=== PATIENT | male | born 1950 | race Caucasian/White ===

== ENCOUNTER → 2017-04-23 | Outpatient (CLI) | payer MEDICAID ==
--- NOTE | 2017-04-23 13:00 | CT ---
EXAMINATION TYPE: CT soft tissue neck w con DATE OF EXAM: 04/23/2017 12:48 PM COMPARISON: Previous study dated 06/09/2011. HISTORY: Bilateral neck swelling marked by BB's CT DLP: 798 mGycm Automated exposure control for dose reduction was used. CONTRAST: CT scan of the neck is performed following with IV Contrast, patient injected with 100 mL of Omnipaqu e 300. Axial images are obtained, coronal and sagittal reformatted images are reviewed. FINDINGS: Visualized portions of the lungs are clear. Visualized intracranial structures are unremarkable. Visualized portions of the paranasal sinuses and mastoids are clear. Vertebral body height and alignment are maintained. Atlantoaxial relationships are normal. There is marked hypertrophic spondylosis at C2-3 and C3-4. There is near complete loss of disc space at C5-6 and C6-7. There is mild hypertrophic spondylosis anteriorly at C5-6 and C6-7. There is uncove rtebral joint disease at the C5-6 and C6-7 level. The major salivary glands are unremarkable. There is developed a large, 2.5 cm subglottic mass on the left. This is indenting the airway and appe ars to be invading the aryepiglottic fold on the left. There is significant, bilateral adenopathy. Th e largest in the superficial triangle on the right measures 2 x 2.76 cm. Conglomerate lymph node mass on the left measures 2.9 x 4.1 cm and encases the external carotid artery on the left. An additional lymph node at the level of the angle of the mandible previously measured 11 mm and today measures 15 mm. The thyroid gland enhances homogeneously. No definite supraclavicular adenopathy is seen. IMPRESSION: 1. Large subglottic mass on the left. 2. Significant, bilateral adenopathy. Several of the lymph nodes we did not present previously or hav e enlarged from previous. 3. Degenerative change within the spine.
== END | disposition home or self-care (01) ==
LOC: RADCTMAIN 12:07
PROVIDERS: ATTEND Family Medicine
DX: R22.1 Localized swelling, mass and lump, neck (principal)
CPT/HCPCS: 70491; Q9967

== ENCOUNTER 2017-05-21 10:28 | Day surgery (SDC) | payer MEDICAID ==
[2017-05-19 11:40] VITALS: BMI 26.3
[~2017-05-21 10:28] MED LIST: ACETAMINOPHEN TAB 500 MG TAB PO ONE; DEXAMETHASONE SOD PHOSPHATE 10 MG/ML 1 ML VIAL IV ONE; DEXAMETHASONE SOD PHOSPHATE 4 MG/ML 1 ML VIAL IV ONE; FAMOTIDINE 20 MG/2 ML VIAL IV ONE; HYDROmorphone 1 MG/ML 1 ML SYRINGE IVP PRN; LACTATED RINGERS 1,000 ML IV SCH; ONDANSETRON 4 MG/2 ML VIAL IVP ONE; ceFAZolin 2 GM in SODIUM CHLORIDE 0.9% 100 ML IVPB ONE
[2017-05-21 11:49] VITALS: RESP 16; TEMP 97.4
[2017-05-21] MEDS ORDERED: LIDOCAINE 1% 20 ML VIAL (10MG/ML) FOR IV START INTRADERMA ONE (11:54)
[2017-05-21 12:16] LABS: INR 1.8 (<1.1); Prothrombin Time 17.4 sec (9.0-12.0)
[2017-05-21 12:18] LABS: Anion Gap 10 mmol/L; Blood Urea Nitrogen 20 mg/dL (9-20); Calcium 9.3 mg/dL (8.4-10.2); Carbon Dioxide 25 mmol/L (22-30); Chloride 107 mmol/L (98-107); Glucose 102 mg/dL (74-99); Non-African American GFR(MDRD) >60 (>60 ml/min/1.73 sqM); Potassium 4.2 mmol/L (3.5-5.1); Sodium 142 mmol/L (137-145)
[2017-05-21] MEDS ORDERED: fentaNYL (PF) 50 MCG/ML 2 ML AMP ONE (12:41)
[2017-05-21] MEDS ORDERED: PROPOFOL 10 MG/ML 20 ML VIAL IV ONE (12:41)
[2017-05-21] MEDS ORDERED: LIDOCAINE 1% INJ 10MG/ML (20 ML MDV) ONE (12:41)
[2017-05-21] MEDS ORDERED: SUCCINYLCHOLINE CHLORIDE 100 MG/5 ML SYR IV ONE (12:41)
[2017-05-21] MEDS ORDERED: DEXAMETHASONE SOD PHOS (MDV) 100 MG/10 ML VIAL ONE (12:41)
[2017-05-21] MEDS ORDERED: MIDAZOLAM 2 MG/2 ML VIAL ONE (12:41)
--- NOTE | 2017-05-21 14:06 | P.OP ---
Date of Procedure: 05/21/17 Preoperative Diagnosis: Left base of tongue mass Cervical lymphadenopathy, malignant Cough Dysphasia Postoperative Diagnosis: Same T2, N2c, M? Stage 4? Procedure(s) Performed: Triple endoscopy and biopsy Implants: Anesthesia: WHITLEYA Surgeon: Alex Vazquez Estimated Blood Loss (ml): 5 Pathology: other (Left base of tongue) Condition: stable Disposition: PACU Indications for Procedure: This patient has a greater than 2 cm mass of the left base of tongue with some cervical lymphadenopathy. Previous fine-needle aspiration demonstrates malignancy. Staging is recommended. Operative Findings: Patient has a over 2 cm mass left base of tongue laterally abutting the lateral pharynx., No esophageal or pulmonary pathology was noted. Description of Procedure: This patient was taken to the operative room and placed in the supine position. A general inhalation anesthetic was administered to the patient by mask and subsequently intubated with a cuffed endotracheal tube by the department of anesthesia with a functioning IV line in place. The patient was monitored throughout the entire case by the department of anesthesia. A Jako laryngoscope was placed into the patient's mouth with care to avoid any trauma to the lips teeth gums and tongue. A tooth guard was placed and the entire oropharynx hypopharynx was evaluated including the base of tongue epiglottis vallecula true and false cords, lateral pharynx, piriform sinus etc. etc. This was examined under microscopic visualization utilizing a Zeiss microscope. There was a large mass measuring between 2-3 cm of the left lateral tongue at the base of the tongue. This was biopsied. Instrumentation was removed and esophagoscope was inserted and we examine the esophagus from the upper esophageal sphincter to the lower esophageal sphincter. There is no signs of any esophageal abnormalities. The esophagoscope was removed and a bronchoscope was inserted and the patient's trachea and then into the right and left mainstem bronchi. All 12 segments of the lungs were evaluated and no endobronchial lesions were noted. All instrumentation was removed and the patient was taken to postanesthesia recovery in excellent condition.
[2017-05-21 14:52] VITALS: BP 155/82; PULSE 63
== END 2017-05-21 15:17 | disposition home or self-care (01) ==
LOC: OR 10:28
PROVIDERS: ATTEND Otolaryngology
DX: D00.07 Carcinoma in situ of tongue (principal); R59.0 Localized enlarged lymph nodes; R05 Cough; R47.02 Dysphasia; R13.14 Dysphagia, pharyngoesophageal phase; I11.0 Hypertensive heart disease with heart failure; I50.9 Heart failure, unspecified; E78.5 Hyperlipidemia, unspecified; I48.91 Unspecified atrial fibrillation; M10.9 Gout, unspecified; E78.00 Pure hypercholesterolemia, unspecified; Z79.01 Long term (current) use of anticoagulants; Z79.891 Long term (current) use of opiate analgesic; Z79.899 Other long term (current) drug therapy; Z87.891 Personal history of nicotine dependence
CPT/HCPCS: 93005; 88305; 80048; 85610; 31536; 43200; 31622; J2250; J1100 ×2; J0690; J2405; J2001; J3010; J0330; J2704

== ENCOUNTER → 2017-06-06 | Outpatient (CLI) | payer MEDICAID ==
--- NOTE | 2017-06-06 16:50 | PE ---
EXAMINATION TYPE: PET CT fusion skull to thigh DATE OF EXAM: 06/06/2017 CLINICAL HISTORY: Malignant neoplasm of base of tongue, initial staging study. TECHNIQUE: Following the intravenous administration of 14.67 mCi of F-18 FDG, whole body images are performed from the skull base to the midthigh. Images are reviewed on the computer in the coronal, axial, and sagittal planes. Reconstructed rotating images are created on independent workstation and reviewed on the computer. A non-contrast CT is performed in conjunction with the PET scan. [facility] neck PET/CT evaluation is performed. COMPARISON: CT neck April 23, 2017. FINDINGS: SKULL BASE AND NECK: There is abnormal lobulated hypermetabolic soft tissue in the bilateral tongue base, left greater than right, which has inferior extension up to level of the epiglottis and pirifor m sinus up to level of hyoid bone on axial image 56 filling the left piriform sinus, max SUV is 15.57 . There are several abnormal confluent right sided neck lymph nodes, largest measured lymph node possib le conglomerate of lymph node measures 2.6 x 2.0 cm on axial image 57 with max SUV of 7.61. There are additional abnormal left sided neck lymph nodes with a larger area measuring lobulated sing le node or 2 adjacent nodes with indistinct fat plane measures 2.3 x 1.7 cm on axial image 70 at leve l of the true vocal cords, max SUV is 9.88s. There is more prominent left-sided lymph node involvemen t from submandibular level 1B up to level of vocal cords. Prominent irregular confluent adenopathy le ft submandibular level is seen near axial image 49 difficult to accurately measure. There is abnormal 1.0 cm lymph node left parapharyngeal space on axial image 41 with max SUV of 5.71 CHEST, MEDIASTINUM, AND HILAR REGION: There is 8 x 8 mm nodule in the superior aspect of left lower l obe on axial image 105 without abnormal hypermetabolic uptake currently. There is diffuse increase uptake in the right-sided anterior upper chest or pectoralis muscle, correl ate for inflammatory process or myositis at this level. ABDOMEN AND PELVIS: No suspicious hypermetabolic uptake in the abdomen or pelvis is seen. OSSEOUS STRUCTURES: No suspicious hypermetabolic uptake in osseous structures is noted. OTHER CT: Cardiomegaly is present. Coronary artery calcification is seen. Main pulmonary artery measures 3.2 cm diameter on axial image 97, CT findings suggesting underlying p ulmonary artery hypertension. Adjacent ascending aorta measures 3.5 cm diameter. 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 No iliac artery extension is seen. Central zone calcifications are seen in prostate gland which is upper limits of normal in size. Incidental normal-appearing appendix is seen. There is multilevel facet arthropathy in the lower lumbar spine. Multilevel spurring in the spine is noted. IMPRESSION: Large lobulated tongue base mass or neoplasm is confirmed with slightly more prominent la rger left-sided component extending through the left piriform sinus. Bilateral adenopathy involves zo alonso 1b,2, and 3 worse on the left side. Suspicious 8 mm left mid lung or superior lower lobe nodule i s noted and warrants short-term CT follow-up in 3 months time to assess for interval growth or change despite nonhypermetabolic uptake malignant involvement cannot be excluded. Otherwise no evidence of metastatic disease in the thorax abdomen or pelvis.
== END | disposition home or self-care (01) ==
LOC: RADPETMAIN 09:58
PROVIDERS: ATTEND Radiology Radiation Oncology
DX: C01 Malignant neoplasm of base of tongue (principal)
CPT/HCPCS: 78815; A9552

== ENCOUNTER 2017-08-24 11:37 | Inpatient (IN) | payer MEDICAID ==
[2017-08-24] MEDS ORDERED: SODIUM CHLORIDE 0.9% 500 ML IV STA (11:41)
--- NOTE | 2017-08-24 11:47 | ED ---
General Adult HPI - General Stated complaint: Fall Time Seen by Provider: 08/24/17 11:37 Source: RN notes reviewed - History of Present Illness Initial comments: This is a 66-year-old male whose has a past medical history significant for recurrent throat cancer. Patient states he has been feeling weaker and weaker lately patient states he 30 yesterday morning he was going to the bathroom when he went to get up he states he felt lightheaded and passed out and hit the back of his head. Patient currently complains of posterior head pain. Patient denies any new neck pain. Patient denies numbness weakness. Patient denies any visual disturbance per patient denies any chest pain palpitations difficulty breathing or shortness of breath. Patient denies any back pain. Patient denies any extremity pain. Patient states she only reason he came in today is because he appears to be getting weaker currently. Patient states his last chemotherapy was week and half ago and his last radiation was a few days ago. Patient denies any recent fever chills or cough. - Related Data Home Medications Medication Instructions Recorded Confirmed Atorvastatin [Lipitor] 40 mg PO HS 05/19/17 08/24/17 Furosemide [Lasix] 20 mg PO QAM 05/19/17 08/24/17 Lisinopril [Prinivil] 20 mg PO BID 05/19/17 08/24/17 Metoprolol Tartrate [Lopressor] 25 mg PO BID 05/19/17 08/24/17 Warfarin [Coumadin] 5 mg PO MOWEFRSA 05/19/17 08/24/17 amLODIPine BESYLATE [Norvasc] 5 mg PO QAM 05/19/17 08/24/17 hydrALAZINE HCL 50 mg PO TID 05/19/17 08/24/17 Warfarin [Coumadin] 2.5 mg PO SUTUTH 08/24/17 08/24/17 Allergies Allergy/AdvReac Type Severity Reaction Status Date / Time No Known Allergies Allergy Verified 08/24/17 11:53 Review of Systems ROS Statement: Those systems with pertinent positive or pertinent negative responses have been documented in the HPI. ROS Other: All systems not noted in ROS Statement are negative. Past Medical History Past Medical History: Atrial Fibrillation, Heart Failure, Hyperlipidemia, Hypertension Additional Past Medical History / Comment(s): states enlarged lymph nodes History of Any Multi-Drug Resistant Organisms: None Reported Past Surgical History: Appendectomy Past Anesthesia/Blood Transfusion Reactions: No Reported Reaction Smoking Status: Former smoker - Past Family History Mother Family Medical History: No Reported History General Exam - General Exam Comments Initial Comments: GENERAL: Patient is well-developed and well-nourished. Patient is nontoxic and well- hydrated and is in mild distress. Patient has a small hematoma to the posterior aspect of the scalp ENT: Neck is soft and supple. No significant lymphadenopathy is noted. Oropharynx is clear. Moist mucous membranes. Neck has full range of motion without eliciting any pain. EYES: The sclera were anicteric and conjunctiva were pink and moist. Extraocular movements were intact and pupils were equal round and reactive to light. Eyelids were unremarkable. PULMONARY: Unlabored respirations. Good breath sounds bilaterally. No audible rales rhonchi or wheezing was noted. CARDIOVASCULAR: There is a regular rate and rhythm without any murmurs gallops or rubs. ABDOMEN: Soft and nontender with normal bowel sounds. No palpable organomegaly was noted. There is no palpable pulsatile mass. SKIN: Skin is clear with no lesions or rashes and otherwise unremarkable. NEUROLOGIC: Patient is alert and oriented x3. Cranial nerves II through XII are grossly intact. Motor and sensory are also intact. Normal speech, volume and content. Symmetrical smile. MUSCULOSKELETAL: Normal extremities with adequate strength and full range of motion. No lower extremity swelling or edema. No calf tenderness. LYMPHATICS: No significant lymphadenopathy is noted PSYCHIATRIC: Normal psychiatric evaluation. Course Vital Signs 08/24/17 11:41 Temperature 97.0 F L Pulse Rate 74 Respiratory 18 Rate Blood Pressure 87/48 O2 Sat by Pulse 95 Oximetry Medical Decision Making - Medical Decision Making EKG shows sinus rhythm at 63 bpm MT interval is 124 QRS is 102 QT interval is 426 QTC is 435. EKG shows no ST segment elevation or depression. CT of the brain and C-spine showed no acute abnormality. Patient's c-collar was removed and he was referred for further x-rays. X-ray showed no acute abnormality Patient's INR was greater than 10/started the patient on some vitamin K. I spoke with because she agreed to admit the patient admitted the patient and wrote admitting orders. - Lab Data Result diagrams: 08/24/17 11:56 08/24/17 11:56 Lab Results 08/24/17 08/24/1717 Range/Units 11:56 11:56 11:56 WBC 1.3 L* (3.8-10.6) k/uL RBC 2.88 L (4.30-5.90) m/uL Hgb 8.6 L (13.0-17.5) gm/dL Hct 25.8 L (39.0-53.0) % MCV 89.6 (80.0-100.0) fL MCH 29.8 (25.0-35.0) pg MCHC 33.3 (31.0-37.0) g/dL RDW 20.2 H (11.5-15.5) % Plt Count 141 L (150-450) k/uL Neutrophils % (Manual) 75 % Band Neutrophils % 3 % Lymphocytes % (Manual) 10 % Monocytes % (Manual) 12 % Neutrophils # (Manual) 1.00 L (1.3-7.7) k/uL Lymphocytes # (Manual) 0.13 L (1.0-4.8) k/uL Monocytes # (Manual) 0.16 (0-1.0) k/uL Nucleated RBCs 0 (0-0) /100 WBC Manual Slide Review Performed Poikilocytosis Slight Anisocytosis Moderate PT (9.0-12.0) sec INR (<1.2) APTT (22.0-30.0) sec Chloride 99 (98-107) mmol/L Carbon Dioxide 22 (22-30) mmol/L BUN 35 H (9-20) mg/dL Creatinine 2.10 H (0.66-1.25) mg/dL Est GFR (MDRD) Af Amer 38 (>60 ml/min/1.73 sqM) Est GFR (MDRD) Non-Af 32 (>60 ml/min/1.73 sqM) Total Creatine Kinase 120 (55-170) U/L CK-MB (CK-2) 0.5 (0.0-2.4) ng/mL CK-MB (CK-2) Rel Index 0.4 Troponin I 0.062 H* (0.000-0.034) ng/mL Total Protein 5.9 L (6.3-8.2) g/dL Albumin 3.3 L (3.5-5.0) g/dL Urine Color Urine Appearance (Clear) Urine pH (5.0-8.0) Ur Specific [place] (1.001-1.035) Urine Protein (Negative) Urine Glucose (UA) (Negative) Urine Ketones (Negative) Urine Blood (Negative) Urine Nitrite (Negative) Urine Bilirubin (Negative) Urine Urobilinogen (<2.0) mg/dL Ur Leukocyte Esterase (Negative) Urine WBC (0-5) /hpf Ur Squamous Epith Cells (0-4) /hpf Urine Bacteria (None) /hpf Hyaline Casts (0-2) /lpf Urine Mucus (None) /hpf 08/24/17 08/24/17 Range/Units 11:56 13:00 WBC (3.8-10.6) k/uL RBC (4.30-5.90) m/uL Hgb (13.0-17.5) gm/dL Hct (39.0-53.0) % MCV (80.0-100.0) fL MCH (25.0-35.0) pg MCHC (31.0-37.0) g/dL RDW (11.5-15.5) % Plt Count (150-450) k/uL Neutrophils % (Manual) % Band Neutrophils % % Lymphocytes % (Manual) % Monocytes % (Manual) % Neutrophils # (Manual) (1.3-7.7) k/uL Lymphocytes # (Manual) (1.0-4.8) k/uL Monocytes # (Manual) (0-1.0) k/uL Nucleated RBCs (0-0) /100 WBC Manual Slide Review Poikilocytosis Anisocytosis PT >130.0 H (9.0-12.0) sec INR >10.0 H* (<1.2) APTT 60.7 H (22.0-30.0) sec Chloride (98-107) mmol/L Carbon Dioxide (22-30) mmol/L BUN (9-20) mg/dL Creatinine (0.66-1.25) mg/dL Est GFR (MDRD) Af Amer (>60 ml/min/1.73 sqM) Est GFR (MDRD) Non-Af (>60 ml/min/1.73 sqM) Total Creatine Kinase (55-170) U/L CK-MB (CK-2) (0.0-2.4) ng/mL CK-MB (CK-2) Rel Index Troponin I (0.000-0.034) ng/mL Total Protein (6.3-8.2) g/dL Albumin (3.5-5.0) g/dL Urine Color Yellow Urine Appearance Cloudy (Clear) Urine pH 5.5 (5.0-8.0) Ur Specific [place] 1.013 (1.001-1.035) Urine Protein 1+ H (Negative) Urine Glucose (UA) Negative (Negative) Urine Ketones 1+ H (Negative) Urine Blood Negative (Negative) Urine Nitrite Negative (Negative) Urine Bilirubin 1+ H (Negative) Urine Urobilinogen 2.0 (<2.0) mg/dL Ur Leukocyte Esterase Trace H (Negative) Urine WBC 9 H (0-5) /hpf Ur Squamous Epith Cells 1 (0-4) /hpf Urine Bacteria Rare H (None) /hpf Hyaline Casts 4 H (0-2) /lpf Urine Mucus Rare H (None) /hpf Disposition Clinical Impression: Anemia, Warfarin-induced coagulopathy, Head injury, Elevated troponin Disposition: ADMITTED IP TO THIS HOSP Referrals: Eugene Willard DO [Primary Care Provider] - 1-2 days Time of Disposition: 13:43
[2017-08-24 12:19] LABS: Anisocytosis Moderate; CH 29.8; CHCM 33.3; HCT 25.8 % (39.0-53.0); HDW 3.75; HGB 8.6 gm/dL (13.0-17.5); MCH 29.8 pg (25.0-35.0); MCHC 33.3 g/dL (31.0-37.0); MCV 89.6 fL (80.0-100.0); Poikilocytosis Slight; RBC 2.88 m/uL (4.30-5.90); RDW 20.2 % (11.5-15.5); WBC (Perox) 1.29
[2017-08-24 12:33] LABS: WBC 1.3 k/uL (3.8-10.6)
--- NOTE | 2017-08-24 12:45 | CT ---
EXAMINATION TYPE: CT brain sunil knutson DATE OF EXAM: 08/24/2017 COMPARISON: NONE HISTORY: Fall CT DLP: 1336.[address] of the brain was performed. The ventricles, basal cisterns and sulci overlying the cerebral convexities demonstrate mild enlargem ent. There is no evidence for intracranial hemorrhage or sulcal effacement. There is decreased attenuatio n about the periventricular white matter and deep white matter of both cerebral hemispheres, compatib le with chronic small vessel ischemia. No mass effects are seen. If symptoms persist consider MRI. Osseous calvarium is intact. Left posterior parietal occipital scalp hematoma. IMPRESSION: 1. Age related atrophic and chronic small vessel ischemic change without acute intracranial process seen at this time. CT Cervical Spine: Unenhanced CT of the cervical spine was performed with bone and soft tissue window settings submitted . Coronal and sagittal reconstruction is obtained. There is normal alignment and prevertebral soft tissues. No evidence for acute cervical fracture . Mo derate degenerative disc disease and spondylosis. Biapical scarring. IMPRESSION: 1. No evidence for acute fracture or subluxation of the cervical spine.
[2017-08-24 12:52] LABS: INR >10.0 (<1.2); Partial Thromboplastin Time 60.7 sec (22.0-30.0); Prothrombin Time >130.0 sec (9.0-12.0)
[2017-08-24 12:56] LABS: Add Differential Manual Differential
[2017-08-24 12:59] LABS: Creatine Kinase MB 0.5 ng/mL (0.0-2.4)
[2017-08-24 13:01] LABS: Band Neutrophils % 3 %; Manual Review Performed; Nucleated Red Blood Cells 0 /100 WBC (0-0); Total Cells Counted 100
[2017-08-24 13:19] LABS: Troponin I 0.062 ng/mL (0.000-0.034)
[2017-08-24 13:22] LABS: Appearance,Urine Cloudy (Clear); Bacteria,Urine Rare /hpf; Bilirubin,Urine 1+ (Negative); Glucose,Urine (UA) Negative (Negative); Ketones,Urine 1+ (Negative); Leukocyte Esterase,Urine Trace (Negative); Mucus,Urine Rare /hpf; Nitrite,Urine Negative (Negative); PH, Urine 5.5 (5.0-8.0); Particle Count 5750; Protein,Urine 1+ (Negative); Specific Gravity,Urine 1.013 (1.001-1.035); Squamous Epithelial Cell,Urine 1 /hpf (0-4); UA Billing (MACRO vs. MICRO) MICRO; WBC,Urine 9 /hpf (0-5)
--- NOTE | 2017-08-24 13:29 | XR ---
EXAMINATION TYPE: XR chest 2V DATE OF EXAM: 08/24/2017 COMPARISON: NONE HISTORY: Fall injury with increased weakness. TECHNIQUE: Frontal and lateral views of the chest are obtained. FINDINGS: There is no focal air space opacity, pleural effusion, or pneumothorax seen. The cardiac silhouette size is within normal limits. Large bridging osteophytes are seen in the thoracic spine. IMPRESSION: No acute cardiopulmonary process.
[2017-08-24 13:37] LABS: Total Protein 5.9 g/dL (6.3-8.2)
[2017-08-24] MEDS ORDERED: PHYTONADIONE 5 MG in SODIUM CHLORIDE 0.9% 50 ML IVPB STA (13:40)
[2017-08-24] MEDS ORDERED: SODIUM CHLORIDE 0.9% 1,000 ML IV ONE (13:43)
[2017-08-24 13:49] LABS: Potassium 3.2 mmol/L (3.5-5.1); Total Bilirubin 0.7 mg/dL (0.2-1.3)
[2017-08-24 14:01] LABS: Calcium 6.4 mg/dL (8.4-10.2)
[2017-08-24 14:02] LABS: Magnesium 0.6 mg/dL (1.6-2.3)
[2017-08-24 15:33] LABS: Magnesium 0.6 mg/dL (1.6-2.3)
[2017-08-24] MEDS: MAGNESIUM SULFATE-D5W PMX 1 GM in DEXTROSE/WATER 1 100ML.BAG IVPB SCH ×3 (16:09→19:25)
[2017-08-24] MEDS: LACTATED RINGERS 1,000 ML IV SCH (21:01)
[2017-08-25] MEDS: METOPROLOL TARTRATE 12.5 MG TAB PO SCH ×3 (00:30→21:03)
--- NOTE | 2017-08-25 05:23 | HP ---
HISTORY AND PHYSICAL DATE OF ADMISSION: 08/24/17. PRESENTING COMPLAINT: Passed out. HISTORY OF PRESENTING COMPLAINT: This is a 66-year-old patient of Dr. Willard. The patient also has a cancer of the base of the tongue and adjoining lymph nodes treated with chemotherapy and radiation treatment with Dr. Walker and just completed treatment. The patient is due to shortly followup. The patient has not been eating or drinking much, just drinking some liquids here and there and gradually has been losing weight. Patient does get lightheaded easily and the last 3 to 4 days has been falling. Two days ago he fell and hit the back of the head in the tub. He fell yesterday, yet again today and came in with a bruise on the back of the head. CT scan did not reveal any fracture or hematoma but INR did come back to be elevated, greater than 10. Patient was not bleeding externally anywhere. Hence was given 5 mg of vitamin K IV was given. The patient's girlfriend lives with him. Patient's son is also present in the room. The patient takes Coumadin for atrial fibrillation and other chronic stable medical conditions include congestive heart failure, hyperlipidemia, hypertension. Just feels weak, tired and run down. REVIEW OF SYSTEMS: CONSTITUTIONAL: Weak, tired and loss of appetite. HEENT bump at the back of the head. RESPIRATORY: None. CARDIOVASCULAR: None. GI: None. GENITOURINARY: None. MUSCULOSKELETAL: None. DERMATOLOGICAL: Bruising the back of the head and the skin. Hematologic: None. Lymphatics: None. Psychiatry: None. Neurological nonfocal. PAST MEDICAL HISTORY: Atrial fibrillation. Base of tongue cancer with lymph node, congestive heart failure. Hyperlipidemia, hypertension and shingles. PAST SURGICAL HISTORY: Tongue biopsy, appendectomy. SOCIAL HISTORY: The patient smoked for about 40 years, over a pack a day. Stopped in 2006. Alcohol occasionally, lives with his girlfriend. FAMILY HISTORY: Reviewed noncontributory to presentation. HOME MEDICATIONS: 1. Coumadin 2.5 mg on Thursday, Thursday, , and 5 mg on Thursday, Thursday, Thursday, Thursday. 2. Prinivil 200 mg b.i.d. 3. Lipitor 40 mg at bedtime. 4. Lopressor 25 p.o. b.i.d. 5. Hydralazine 50 mg t.i.d. 6. Norvasc 5 mg p.o. daily. 7. Lasix 20 mg p.o. daily. ALLERGIES: None. PHYSICAL EXAMINATION: Vital signs on presentation: Temperature 97, pulse 74, respiration 18, blood pressure 87/48, pulse ox 95% on room air. GENERAL APPEARANCE: Average built, lying in bed, tired appearing. Eyes pupils conjunctivae pale HEENT: Oral cavity normal. Patient has got a bruising of the slight bump at the back of the head. Neck JVD not raised. Mass not palpable. Respiratory effort normal. Lungs slightly decreased breath sounds. Cardiovascular 1st and 2nd sounds normal. No edema. ABDOMEN: Soft, nontender. Liver and spleen not palpable. Lymphatics: No lymph nodes palpable. Psychiatry awake, able to answer simple questions. HEENT patient also got a hoarse voice. INVESTIGATIONS: White count 1.3, hemoglobin 8.6, platelets 141. INR greater than 10. Potassium 3.2, BUN 35, creatinine 2.10, the patient's BUN and creatinine on May 21, 2017 was 20/0.87, magnesium 0.6, calcium 6.4, albumin 3.3. EKG shows sinus rhythm. Sinus arrhythmia. ASSESSMENT: 1. Syncope from significant hypotension in a patient who has been losing weight and his current antihypertensives have become too much for him. 2. Moderate protein calorie malnutrition from decreased oral intake with hypoalbuminemia. 3. Severe hypomagnesemia, decreased oral intake. 4. Acute renal failure likely prerenal. Could be an acute tubular necrosis component. 5. Hypokalemia. 6. Coumadin toxicity with no evidence of bleeding. 7. Pancytopenia from chemotherapy. 8. Cancer of the base of tongue with local lymph nodes involved. 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 PLAN: Patient will be given IV fluids. The patient's antihypertensive will be held back especially the Prinivil and the Norvasc. We will add a small dose of Lopressor 12.5 twice a day for systolic above 100. The patient's Lasix of course will be discontinued. Patient did receive 5 mg of vitamin K, hence there was no further bleeding. We will keep a close eye. Patient's oral intake is rather poor and oral rather poor and will get opinion from Dr. Jones. May have to think of additional source of feeding like a PEG tube if the patient not able to maintain oral intake. We will get dietitian consultation for the same and also add food supplements like Ensure. Care was discussed with the patient and the girlfriend and the family at the bedside. Questions were answered. Repeat INR and labs in the morning. Additionally we will do fall precautions, bedside commode and an ice pack for the bruise at the back of her head. MMODL / IJN: [id number] /
[2017-08-25 06:21] LABS: INR 1.4 (<1.2); Prothrombin Time 13.4 sec (9.0-12.0)
[2017-08-25 06:40] LABS: Glucose,Whole Blood 97 mg/dL (75-99)
[2017-08-25 07:10] LABS: Anisocytosis Moderate; CH 29.8; HCT 20.6 % (39.0-53.0); HDW 3.61; Hypochromasia Slight; MCH 30.2 pg (25.0-35.0); MCHC 33.3 g/dL (31.0-37.0); MCV 90.6 fL (80.0-100.0); Macrocytosis Slight; Mean Platelet Volume 7.4; Poikilocytosis Slight; RBC 2.27 m/uL (4.30-5.90); RDW 20.7 % (11.5-15.5); WBC (Perox) 1.05
[2017-08-25 07:18] LABS: WBC 0.9 k/uL (3.8-10.6)
[2017-08-25 07:20] LABS: HGB 6.8 gm/dL (13.0-17.5)
[2017-08-25 07:29] LABS: Calcium 5.9 mg/dL (8.4-10.2)
[2017-08-25 08:20] LABS: Magnesium 1.2 mg/dL (1.6-2.3)
[2017-08-25 08:23] LABS: Add Differential Manual Differential
[2017-08-25 08:24] LABS: Potassium 2.8 mmol/L (3.5-5.1)
[2017-08-25 08:25] LABS: Calcium 5.4 mg/dL (8.4-10.2)
[2017-08-25 08:26] LABS: Manual Review Performed
[2017-08-25] MEDS ORDERED: Potassium Replacement Protocol 1 EACH MISC MISCELLANE PRN ×2 (09:24→09:59)
[2017-08-25] MEDS ORDERED: Magnesium Replacement Protocol 1 EACH MISC MISCELLANE PRN ×2 (09:24→10:00)
[2017-08-25 09:35] LABS: Anisocytosis Moderate; CH 29.7; CHCM 33.6; MCH 30.3 pg (25.0-35.0); MCHC 34.2 g/dL (31.0-37.0); MCV 88.6 fL (80.0-100.0); Mean Platelet Volume 7.3; Poikilocytosis Slight; RBC 2.26 m/uL (4.30-5.90); RDW 20.5 % (11.5-15.5)
[2017-08-25 09:36] LABS: HGB 6.9 gm/dL (13.0-17.5); WBC 1.1 k/uL (3.8-10.6)
[2017-08-25] MEDS ORDERED: CALCIUM GLUCONATE 2,000 MG in SODIUM CHLORIDE 0.9% 100 ML IVPB ONE (10:00)
--- NOTE | 2017-08-25 10:54 | ECHOF ---
Referral Reason:syncope MEASUREMENTS -------- HEIGHT: 180.3 cm WEIGHT: 75.3 kg BP: 115/55 IVSd: 1.0 cm (0.6 - 1.1) LVIDd: 5.5 cm (3.9 - 5.3) LVPWd: 1.3 cm (0.6 - 1.1) IVSs: 1.7 cm LVIDs: 3.8 cm LVPWs: 1.2 cm LAESV Index (A-L): 24.44 ml/m Ao Diam: 3.2 cm (2.0 - 3.7) AV Cusp: 2.0 cm (1.5 - 2.6) LA Diam: 2.8 cm (2.7 - 3.8) MV EXCURSION: 20.824 mm (> 18.000) MV EF SLOPE: 141 mm/s (70 - 150) EPSS: 0.7 cm MV E Nba: 0.69 m/s MV DecT: 255 ms MV A Nba: 0.65 m/s MV E/A Ratio: 1.08 RAP: 5.00 mmHg RVSP: 20.60 mmHg FINDINGS -------- This was a technically good study. The left ventricular size is normal. There is borderline concentric left ventricular hypertrophy. Overall left ventricular systolic function is normal with, an EF between 55 - 60 %. The right ventricle is normal in size and function. Normal LA size by volume 22+/-6 ml/m2. The right atrium is normal in size. Aortic valve is trileaflet and is mildly thickened. The mitral valve leaflets are mildly thickened. Mild mitral regurgitation is present. Mild tricuspid regurgitation present. The right ventricular systolic pressure, as measured by Doppler, is 20.60mmHg. Pulmonic valve appears structurally normal. The aortic root size is normal. Normal inferior vena cava with normal inspiratory collapse consistent with estimated right atrial pressure of 5 mmHg. The pericardium is normal. CONCLUSIONS -------- 1. This was a technically good study. 2. Mild mitral regurgitation is present. 3. Mild tricuspid regurgitation present. 4. The right ventricular systolic pressure, as measured by Doppler, is 20.60mmHg. 5. Pulmonic valve appears structurally normal. 6. The aortic root size is normal. 7. Normal inferior vena cava with normal inspiratory collapse consistent with estimated right atrial pressure of 5 mmHg. 8. The pericardium is normal. 9. The left ventricular size is normal. 10. There is borderline concentric left ventricular hypertrophy. 11. Overall left ventricular systolic function is normal with, an EF between 55 - 60 %. 12. The right ventricle is normal in size and function. 13. Normal LA size by volume 22+/-6 ml/m2. 14. The right atrium is normal in size. 15. Aortic valve is trileaflet and is mildly thickened. 16. The mitral valve leaflets are mildly thickened. RADIO DESPATCHER: Tatum Tong RDCS
--- NOTE | 2017-08-25 11:15 | CONS ---
CONSULTATION Mr. Moore is a 66-year-old male who presented after a fall and possible syncope. The patient has been followed by Dr. 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 His last course of radiation was this past Thursday. The patient has not been able to eat. His fluid intake has been quite low. He has lost about 30 pounds. Yesterday he got out of the bathroom and fell. He denies any associated chest pain. No change in his breathing. No dizziness or palpitation. No peripheral edema. No PND, orthopnea, or peripheral edema. He is overall weaker with lack off energy. He, according to him, had no prior history of other cardiac issue. He has underwent stress testing and echo in the past and he was not told that he has any evidence of ischemic heart disease. His coronary abdirizak factor is remarkable for history of hypertension. He is nondiabetic. He stopped smoking in 2006. He is hyperlipidemic. MEDICATION: His medications at home include Lasix 20 mg daily, amlodipine 5 mg daily, hydralazine 50 mg 3 times a day, metoprolol 25 mg, Lipitor 40 mg daily, Prinivil 20 mg twice a day, and Coumadin. REVIEW OF SYSTEMS: RESPIRATORY SYSTEM: He has no recent wheezing. No cough. No history of documented obstructive lung disease. GI SYSTEM: No recent GI bleeding. No peptic ulcer disease. SYSTEM: No dysuria or hematuria. NERVOUS SYSTEM: No history of stroke or seizure. PHYSICAL EXAMINATION: He is a 66-year-old male, alert, in no apparent distress. Blood pressure 117/58 with evidence of orthostatic changes. Heart rate in the 70s. HEAD: Normocephalic. EYES: Sclerae nonicteric. NECK: No bruit. LUNGS: Clear to auscultation. HEART: Regular rate and rhythm, S1, S2. No S3. No rub or gallop. ABDOMEN: Soft, nontender. Positive bowel sounds, no organomegaly. EXTREMITIES: No edema. Intact pulses. LAB DATA: Revealed a white blood cell of 0.9, hemoglobin of 6.8, platelet count of 104. His INR on presentation was over 10 down to 1.4 today. His potassium is 2.8, BUN and creatinine 32 and 1.61, improved since yesterday of 35 and 2.1. His albumin is 3.3. Troponin 0.062. His EKG revealed a sinus mechanism with occasional PVCs and PACs. IMPRESSION: 1. Fall and possible syncope, most likely related to orthostatic hypotension related to the history of hypertension and weight loss. 2. Malnutrition. 3. Electrolyte imbalance. 4. Severe anemia. 5. Pancytopenia. 6. Hypercoagulation. 7. History of cancer of the tongue, received chemotherapy and radiation therapy. RECOMMENDATION: From the cardiac standpoint, I agree with the plan with IV fluids. Most likely he will need to be transfused. I spoke to Dr. Jones in that regard and he will be further evaluated. I will try to obtain the workup that was done in the office. Patient has been started on low-dose beta danyelle and depending on his response, further recommendation will be made, anticoagulation will be continued to be held at this point. Thank you for this consult. Will follow with you. COLLINS / PORSHAN: [id number] /
[2017-08-25] MEDS: POTASSIUM CHLORIDE ER 20 MEQ TAB.ER PO SCH ×3 (11:36→14:20)
[2017-08-25] MEDS: MAGNESIUM SULFATE-D5W PMX 1 GM in DEXTROSE/WATER 1 100ML.BAG IVPB SCH ×3 (11:52→14:18)
--- NOTE | 2017-08-25 13:47 | P.PN ---
Progress Note - Text DATE OF SERVICE: 08/25/2017 PRESENTING COMPLAINT: Passing out HISTORY OF PRESENT ILLNESS: 66-year-old patient history of cancer of the base of the tongue and adjoining lymph nodes status post chemoradiation therapy. Has had overall poor appetite and losing weight. Has found he is becoming lightheaded and has been falling. Fell on his back his head and the top came in for evaluation computed tomography scan negative and INR will was greater than 10. Not bleeding anywhere however received vitamin K. INTERVAL HISTORY: Lying in bed appears tired. Magnesium potassium and calcium all low and supplemented appropriately. Discussion had with patient regarding placement of a feeding tube. Questions were answered patient understood reason for placement and is agreeable. IV fluids continue. Dietitian consulted. Ambulatory to and from the bathroom with assistance. Appetite overall poor not eating much. No bleeding, daily monitoring of INR. REVIEW OF SYSTEMS: Done for constitutional ,cardiovascular, GI, pulmonary with relevant findings as above. CURRENT MEDICATIONS Lopressor 12.5 mg by mouth daily, filgrastim 480 g subcu daily PHYSICAL EXAM VITAL SIGNS: Temperature 97.9, pulse 74, respiratory rate 16, blood pressure 117/58, standing blood pressure 88/46, lying blood pressure 115/55. Oxygen saturation 100% on 2 L GENERAL APPEARANCE: Lying in bed, tired appearing. EYES: Pupils equal. Conjunctiva normal. NECK: JVD not raised. Mass not palpable. RESPIRATORY: Respiratory effort normal. Lungs clear to auscultation. CARDIOVASCULAR: First and second sounds normal. No edema. ABDOMEN: Soft. Liver and spleen not palpable. No tenderness. No mass palpable. PSYCHIATRY: Alert and oriented x3. Mood and affect low. INVESTIGATIONS: White blood cell count 1.1 hemoglobin 6.9, potassium 2.8, BUN 32, creatinine 1.61 calcium 5.4, magnesium 1.2, ASSESSMENT: -Syncope from significant hypotension in a patient who is been losing weight and his current antihypertensives have become too much for him. -Acute anemia, no active source of bleeding identified, likely hemodilution or from chemotherapy -Moderate protein calorie malnutrition from decreased oral intake with hypoalbuminemia -Severe hypomagnesemia decreased oral intake. -Acute renal failure likely prerenal, could be acute tubular necrosis component. -Hypokalemia. -Coumadin toxicity was no evidence of bleeding. -Pancytopenia from chemotherapy. -Cancer of the base of the tongue with local lymph node involvement. 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 PLAN: Continue IV fluids, monitor daily labs, electrolyte imbalances supplemented, discussion had regarding PEG tube placement with patient and oncology and for now PEG tube is on hold. Hemoglobin low today will likely receive 1 unit of packed red blood cells, started low-dose beta danyelle, all the cardiac medications held as is his anticoagulation. Plan of care discussed with the patient the bedside we will monitor closely. RESIDENTIAL FEE APPRAISER statement: Patient was seen and examined by nurse practitioner Digna Hwang and all elements of the case discussed with attending Dr. Zee
[2017-08-25] MEDS: HYDROcodone/APAP 5-325MG 1 EACH TAB PO PRN (14:39)
[2017-08-25] MEDS: LACTATED RINGERS 1,000 ML IV SCH ×2 (14:40→21:03)
--- NOTE | 2017-08-25 15:36 | P.CONS ---
History of Present Illness - Reason for Consult Consult date: 08/25/17 squamous cell head/neck malignancy Requesting physician: Atif Zee - Chief Complaint syncopy with head trauma - History of Present Illness Mr. Moore is a very pleasant male pt of Dr. Jones who had noticed a mass on each side of his upper neck in 2010, CT 06/02 showed adenopathy L > R, with the largest group about 4.1 cm in the left anterior triangle, treated with antibiotics with decrease in size, pt noticed progressive increase in size again in January 2017, he went to an Urgent Care for evaluation in April, he was again treated with antibiotics, not much improvement so he was referred to Dr. Vazquez, flexible laryngoscopy on 05/11/17, revealed mass at the base of the tongue, biopsy was positive for squamous cell carcinoma, CT neck on 04/23/17 revealed 2.5 cm subglottic mass on the left indenting the airway, bilateral conglomerate adenopathy and a left submandibular node, staging PET scan did not show any distant disease. Concurrent chemo/radiation was stated in May and he received his last dose of weekly cisplatin on 08/12 and his last RT was 08/18/17. Pt required hydration after last chemo, he had otherwise tolerated treatment pretty well, maintaining oral intake up until the last week. Pt had a progressive decline in appetite, he denies nausea or vomiting, he was getting progressively weak as well, he had a syncopal episode in the bathroom at home and hit his head, he is on coumadin for a-fib, INR>10 on admit, CT of his head is negative for intracranial bleeding or c-spine damage. Pt is alert when seen , he denied fever, oral irritation, his throat is sore, but he denies significant pain with swallowing, he can tolerate liquids and very soft things, he states that he can cough up a small amount of bright red blood once in a while, nothing persistent or progressive, he denies chest pain, palpitation, abd pain, indigestion, hematuria, hematochezia or melena, he denies any other bleeding/spontaneous bruising, petechiae. He denies headache, double, blurred or loss of vision. Review of Systems 14 point ROS is as stated in HPI Past Medical History Past Medical History: Atrial Fibrillation, Cancer, Heart Failure, Hyperlipidemia , Hypertension Additional Past Medical History / Comment(s): states enlarged lymph nodes.mass/ base of tongue has had chemo(last tx week and half ago) and had radiation a few days ago. shingles april 2017. pt's girlfriend to bring in [place] record w / dates of vaccines. History of Any Multi-Drug Resistant Organisms: None Reported Past Surgical History: Appendectomy Additional Past Surgical History / Comment(s): triple endoscopy and tongue bx april 2017 Past Anesthesia/Blood Transfusion Reactions: No Reported Reaction Past Psychological History: No Psychological Hx Reported Smoking Status: Former smoker Past Alcohol Use History: Occasional Additional Past Alcohol Use History / Comment(s): quit smoking 2006, smoked 1to 1.5 ppd from age 15 (1965). past heavy drinker now rare Past Drug Use History: None Reported - Past Family History Mother Family Medical History: No Reported History Additional Family Medical History / Comment(s): Familiy history of heart disease Medications and Allergies Home Medications Medication Instructions Recorded Confirmed Type Atorvastatin [Lipitor] 40 mg PO HS 05/19/17 08/24/17 History Furosemide [Lasix] 20 mg PO QAM 05/19/17 08/24/17 History Lisinopril [Prinivil] 20 mg PO BID 05/19/17 08/24/17 History Metoprolol Tartrate [Lopressor] 25 mg PO BID 05/19/17 08/24/17 History Warfarin [Coumadin] 5 mg PO MOWEFRSA 05/19/17 08/24/17 History amLODIPine BESYLATE [Norvasc] 5 mg PO QAM 05/19/17 08/24/17 History hydrALAZINE HCL 50 mg PO TID 05/19/17 08/24/17 History Warfarin [Coumadin] 2.5 mg PO SUTUTH 08/24/17 08/24/17 History Allergies Allergy/AdvReac Type Severity Reaction Status Date / Time No Known Allergies Allergy Verified 08/24/17 11:53 Physical Exam Vitals: Vital Signs Temp Pulse Pulse Pulse Pulse Pulse Resp 08/25/17 12:00 97.5 F L 75 16 08/25/17 08:23 97.9 F 74 91 64 16 08/25/17 04:00 97.4 F L 65 18 08/25/17 00:00 97.6 F 71 18 08/24/17 23:15 10/02/17 20:00 97.4 F L 66 18 08/24/17 16:10 98.3 F 48 L 16 08/24/17 16:00 96.9 F L 66 16 BP BP BP BP BP Pulse Ox 08/25/17 12:00 149/67 98 08/25/17 08:23 117/58 88/46 115/55 100 08/25/17 04:00 111/50 100 08/25/17 00:00 100/44 100 08/24/17 23:15 90/38 08/24/17 20:00 89/51 99 08/24/17 16:10 98/54 100 08/24/17 16:00 102/56 100 Intake and Output 08/24/17 08/25/17 08/25/17 22:59 06:59 14:59 Intake Total 1200 1000 Balance 1200 1000 Intake: IV 1200 1000 Lactated Ringers 1,000 ml 1200 1000 @ 125 mls/hr IV .Q8H [facility] Rx#:[id number] Other: Voiding Method Toilet # Voids 1 # Bowel Movements 2 Weight 75.5 kg 75.5 kg Patient Weight 08/26/17 06:59 Weight 75.5 kg - Constitutional General appearance: average body habitus, cooperative, no acute distress - EENT Eyes: anicteric sclerae, EOMI, PERRLA, normal appearance ENT: hearing grossly normal, normal oropharynx - Neck left anterior cervical lymph node 1.5cm, firm, fixed Neck: lymphadenopathy - Respiratory Respiratory: bilateral: CTA - Cardiovascular Rhythm: irregularly irregular Heart sounds: normal: S1, S2 leg Peripheral Edema: bilateral: None - Gastrointestinal General gastrointestinal: no absent bowel sounds, no decreased bowel sounds, no distended, no hepatomegaly, no hyperactive bowel sounds, normal bowel sounds, no organomegaly, no rigid, no scaphoid, soft, no splenomegaly, no tenderness, no umbilical hernia, no ventral hernia - Integumentary left occipital 8cm hematoma from trauma noted, few scattered ecchymotic areas on bilateral forearms - Neurologic Neurologic: CNII-XII intact - Musculoskeletal Musculoskeletal: strength equal bilaterally - Psychiatric Psychiatric: A&O x's 3, appropriate affect, intact judgment & insight Results CBC & Chem 7: 08/25/17 09:14 08/25/17 05:38 Labs: Abnormal Lab Results - Last 24 Hours (Table) 08/24/17 08/25/17 08/25/17 Range/Units 14:37 05:38 05:38 WBC 0.9 L* (3.8-10.6) k/uL RBC 2.27 L (4.30-5.90) m/uL Hgb 6.8 L* D (13.0-17.5) gm/dL Hct 20.6 L (39.0-53.0) % RDW 20.7 H (11.5-15.5) % Plt Count 104 L (150-450) k/uL PT 13.4 H (9.0-12.0) sec INR 1.4 H (<1.2) Potassium (3.5-5.1) mmol/L BUN (9-20) mg/dL Creatinine (0.66-1.25) mg/dL Calcium 5.9 L* (8.4-10.2) mg/dL Magnesium 0.6 L* (1.6-2.3) mg/dL Crossmatch 08/25/17 08/25/17 08/25/17 Range/Units 05:38 09:14 09:14 WBC 1.1 L* (3.8-10.6) k/uL RBC 2.26 L (4.30-5.90) m/uL Hgb 6.9 L* (13.0-17.5) gm/dL Hct 20.0 L* (39.0-53.0) % RDW 20.5 H (11.5-15.5) % Plt Count 106 L (150-450) k/uL PT (9.0-12.0) sec INR (<1.2) Potassium 2.8 L* (3.5-5.1) mmol/L BUN 32 H (9-20) mg/dL Creatinine 1.61 H (0.66-1.25) mg/dL Calcium 5.4 L* (8.4-10.2) mg/dL Magnesium 1.2 L (1.6-2.3) mg/dL Crossmatch See Detail Comments: CT C-spine report reviewed ECHO report reviewed Chest x-ray: report reviewed CT Scan - head: report reviewed Assessment and Plan (1) Head and neck malignancy Narrative/Plan: Pt has completed concurrent chemo/radiation within the previous 10 days. He will be due for treatment follow up imaging in the next 2-3 weeks. This will be planned for outpatient. Status: Acute (2) Antineoplastic chemotherapy induced pancytopenia Narrative/Plan: 1 unit PRBCs ordered for Hgb 6.9, GCSF ordered for WBC 1.1 with no diff, platelets though low are adequate and not requiring intervention at this time. Labs daily Status: Acute (3) Head injury Narrative/Plan: Non contrast CT of head and neck did not show intracranial bleeding, scalp hematoma noted, no fracture or dislocation of c-spine. Concern for bleeding as pt INR was supratherapeutic on admit, now reversed, 1.4. Close monitoring of neuro status, cont to monitor hematoma, follow up non-contrast CT in AM. Syncopy at home, othrostatics were positive. Likely related to BP meds and weight loss. IM has consulted Cardiology. Status: Acute (4) Warfarin-induced coagulopathy Narrative/Plan: Was reversed, INR 1.4 today, cont to hold coumadin for now. Status: Acute (5) Protein calorie malnutrition Narrative/Plan: Dietitian was consulted, full liquid diet and multiple supplements ordered. Case discussed with IM. Will wait to consider PEG until after counts have recovered form chemotherapy and evaluate pt progress with oral intake. Status: Chronic
[2017-08-25] MEDS: FILGRASTIM-SNDZ 480 MCG/0.8 ML SYRINGE SQ SCH (17:58)
--- NOTE | 2017-08-25 20:03 | PN ---
PROGRESS NOTE DATE OF SERVICE: 08/25/2017 ATTENDING NOTE: This patient seen examined by me. I discussed with my nurse practitioner, Ms. Hwang. This is a patient who presented with Coumadin toxicity, episodes of syncope with history of atrial fibrillation. INR has come down. Also, has acute renal failure which is getting better. PHYSICAL EXAMINATION: On examination, temperature 98.3 pulse 60, blood pressure 135/71, pulse ox 98%. LUNGS: Fair air entry. CARDIOVASCULAR: First and second sounds normal. INVESTIGATIONS: White count 0.9, hemoglobin 6.8, platelets 104. 2.8, BUN 32, creatinine 1.61 potassium 5.4, stool occult is negative. C diff is negative. ASSESSMENT: 1. Hypertension from weight loss and hypertensives, improving. 2. Moderate protein-calorie malnutrition from decreased oral intake. 3. Acute renal failure likely prerenal. Could be acute tubular necrosis component, some improvement. 4. Coumadin toxicity, patient having received vitamin K. 5. Pancytopenia from chemotherapy. 6. Squamous cell carcinoma at the base of the tongue status post chemo and radiation treatment. PLAN: Spoke to Dr. Jones from Oncology. Because of the pancytopenia, hold off any PEG tube at the present time. See how the patient does with increasing oral intake and IV fluids. Since the patient received a hefty dose of vitamin K, the patient may do better with other anticoagulants. We left the patient on a small dose of Lopressor. MMODL / IJN: [id number] /
[2017-08-26] MEDS: LACTATED RINGERS 1,000 ML IV SCH ×3 (02:18→08:08)
[2017-08-26] MEDS: ONDANSETRON 4 MG/2 ML VIAL IVP PRN (04:29)
[2017-08-26 06:36] LABS: INR 1.2 (<1.2); Prothrombin Time 11.5 sec (9.0-12.0)
[2017-08-26 06:45] LABS: Anion Gap 7 mmol/L; Blood Urea Nitrogen 18 mg/dL (9-20); Carbon Dioxide 26 mmol/L (22-30); Chloride 105 mmol/L (98-107); Glucose 86 mg/dL (74-99); Magnesium 1.5 mg/dL (1.6-2.3); Non-African American GFR(MDRD) >60 (>60 ml/min/1.73 sqM); Potassium 3.2 mmol/L (3.5-5.1); Sodium 138 mmol/L (137-145)
[2017-08-26 06:46] LABS: Anisocytosis Slight; Basophils % (A) 0 %; CH 30.4; CHCM 33.3; Eosinophils % (A) 1 %; HDW 3.48; HGB 7.3 gm/dL (13.0-17.5); Immature Gran Flag Slight; Luc # (Auto) 0.05; Luc % (Auto) 3; Lymphocytes # (A) 0.1 k/uL (1.0-4.8); Lymphocytes % (A) 5 %; MCH 30.3 pg (25.0-35.0); MCHC 33.1 g/dL (31.0-37.0); MCV 91.5 fL (80.0-100.0); Macrocytosis Slight; Monocytes # (A) 0.2 k/uL (0-1.0); Monocytes % (A) 9 %; Neutrophils # (A) 1.6 k/uL (1.3-7.7); Neutrophils % (A) 83 %; Poikilocytosis Slight; RBC 2.41 m/uL (4.30-5.90); RDW 19.8 % (11.5-15.5); WBC (Perox) 2.11
[2017-08-26 06:48] LABS: Calcium 6.4 mg/dL (8.4-10.2)
[2017-08-26] MEDS ORDERED: CALCIUM GLUCONATE 2,000 MG in SODIUM CHLORIDE 0.9% 100 ML IVPB ONE (07:30)
[2017-08-26 07:46] LABS: WBC 1.9 k/uL (3.8-10.6)
[2017-08-26] MEDS: METOPROLOL TARTRATE 12.5 MG TAB PO SCH (08:09)
[2017-08-26] MEDS: HYDROcodone/APAP 5-325MG 1 EACH TAB PO PRN (08:09)
[2017-08-26] MEDS: POTASSIUM CHLORIDE ER 20 MEQ TAB.ER PO SCH ×2 (08:09→09:58)
--- NOTE | 2017-08-26 08:37 | CT ---
EXAMINATION TYPE: CT brain wo con DATE OF EXAM: 08/26/2017 COMPARISON: 08/24/2017 HISTORY: 66-year-old male follow up study after fall and pain. TECHNIQUE: Examination was done in axial plane without intravenous contrast. Coronal and sagittal r econstructions performed. CT DLP: 1036 mGycm Automated exposure control for dose reduction was used. FINDINGS: There is no evidence of acute intracranial hemorrhage, acute ischemic changes, mass, mass-effect, or extra-axial fluid collection. There is no effacement of cerebral sulci or basal subarachnoid cister ns. There is no hydrocephalus. There is no midline shift. Rodriguez-white matter distinction is preserv ed. Patchy white matter hypodensities. There is a moderate-sized left posterior scalp contusion with focal scalp hematoma measuring up to 3. 0 cm. Additional mild scalp swelling posteriorly towards the vertex. No calvarial fracture. Paranasal sinuses and mastoid air cells appear well-pneumatized. Orbits and gl obes are intact. IMPRESSION: 1. No acute intracranial abnormality seen. 2. Moderate-sized left posterior scalp contusion with a focal scalp hematoma measuring up to 3.0 cm. Some additional mild scalp swelling posteriorly towards the vertex. No underlying calvarial fracture.
[2017-08-26 08:50] LABS: Manual Review Performed
[2017-08-26] MEDS: MAGNESIUM SULFATE-D5W PMX 1 GM in DEXTROSE/WATER 1 100ML.BAG IVPB SCH ×2 (09:56→11:34)
--- NOTE | 2017-08-26 10:22 | PN ---
PROGRESS NOTE Mr. Moore is a 66-year-old male who has a history of paroxysmal atrial fibrillation, history of hypertension and hyperlipidemia who had a cancer of the base of the tongue and lymph nodes, was receiving chemotherapy and radiation, who presented with an episode of orthostatic hypotension and presyncope with progressive falls. He was noted to be severely anemic and dehydrated. He is feeling better today. He received transfusion yesterday. He is denying any chest pain. His breathing has been stable. He denies any dizziness or palpitation. He continues to be on the IV fluid, metoprolol tartrate 12.5 mg twice a day. PHYSICAL EXAMINATION: Blood pressure 142/60 with a heart in the 70s. LUNGS: Clear. HEART: Regular rate and rhythm. S1, S2. No S3. No rub appreciated. ABDOMEN: Soft and nontender. EXTREMITIES: No edema. LAB DATA: Revealed hemoglobin of 7.3. BUN and creatinine of 18 and 1.08, potassium 3.2. His magnesium remains low at 1.5. IMPRESSION: 1. Orthostatic hypotension, improving. 2. Hyperlipidemia. 3. Paroxysmal atrial fibrillation. 4. History of hypertension. 5. History of carcinoma. 6. Pancytopenia related to the chemotherapy and radiation therapy. RECOMMENDATION: Patient's echocardiogram revealed a preserved ventricle size and systolic function. His INR is back to normal at this point. From the cardiac standpoint, I will re- initiate the treatment with his statin. I will increase the dose of his metoprolol. I would recommend to re-initiate anticoagulation once it is agreeable with the oncology service. He will follow up as an outpatient with Dr. Acuña. MMTUANL / PORSHAN: [id number] /
[2017-08-26] MEDS: FILGRASTIM-SNDZ 480 MCG/0.8 ML SYRINGE SQ SCH (11:55)
[2017-08-26 12:38] LABS: Anisocytosis Slight; CH 30.2; CHCM 33.1; HCT 23.4 % (39.0-53.0); HDW 3.51; HGB 7.6 gm/dL (13.0-17.5); MCH 29.7 pg (25.0-35.0); MCHC 32.4 g/dL (31.0-37.0); MCV 91.6 fL (80.0-100.0); Macrocytosis Slight; Mean Platelet Volume 7.5; Poikilocytosis Slight; RBC 2.56 m/uL (4.30-5.90); RDW 19.8 % (11.5-15.5); WBC 2.5 k/uL (3.8-10.6)
[2017-08-26] MEDS ORDERED: POTASSIUM CHLORIDE ER 20 MEQ TAB.ER PO SCH (13:00)
--- NOTE | 2017-08-26 15:18 | P.PN ---
Progress Note - Text Progress Note Date: 08/26/17 DATE OF SERVICE: 08/26/2017 PRESENTING COMPLAINT: Passing out HISTORY OF PRESENT ILLNESS: 66-year-old patient history of cancer of the base of the tongue and adjoining lymph nodes status post chemoradiation therapy. Has had overall poor appetite and losing weight. Has found he is becoming lightheaded and has been falling. Fell on his back his head and the top came in for evaluation computed tomography scan negative and INR will was greater than 10. Not bleeding anywhere however received vitamin K. INTERVAL HISTORY: 08/26/2017: Lying in bed patient appears tired, electrolytes out of balance magnesium potassium and calcium all supplemented appropriately. Discussion regarding patient's appetite and versus feeding tube was had at the bedside today. Patient does not want a feeding tube however unsure of how to go about getting in quality nutrition. Nutrition services consulted. Advised patient to have small meals frequently throughout the day, high-quality protein shakes, high- quality protein bars, in addition to any other foods that he would like to eat. Patient verbalized understanding. Ambulating to and from the bathroom independently. Last BM 08/26/2017, ate about 50% of his breakfast. 08/25/2017: Lying in bed appears tired. Magnesium potassium and calcium all low and supplemented appropriately. Discussion had with patient regarding placement of a feeding tube. Questions were answered patient understood reason for placement and is agreeable. IV fluids continue. Dietitian consulted. Ambulatory to and from the bathroom with assistance. Appetite overall poor not eating much. No bleeding, daily monitoring of INR. REVIEW OF SYSTEMS: Done for constitutional ,cardiovascular, GI, pulmonary with relevant findings as above. CURRENT MEDICATIONS Lopressor 12.5 mg by mouth daily, filgrastim 480 g subcu daily PHYSICAL EXAM VITAL SIGNS: Temperature 97.8, pulse 67, respirations 16, blood pressure 120/60, oxygen saturation 96% on room air. GENERAL APPEARANCE: Lying in bed, tired appearing. EYES: Pupils equal. Conjunctiva normal. NECK: JVD not raised. Mass not palpable. RESPIRATORY: Respiratory effort normal. Lungs clear to auscultation. CARDIOVASCULAR: First and second sounds normal. No edema. ABDOMEN: Soft. Liver and spleen not palpable. No tenderness. No mass palpable. PSYCHIATRY: Alert and oriented x3. Mood and affect normal. INVESTIGATIONS: White blood cell count 2.5, hemoglobin 7.6, potassium 3.23 drawn 3.6 after supplementation, calcium 6.4, magnesium 1.5. ASSESSMENT: -Hypotension from weight loss and antihypertensives, improving -Moderate protein calorie malnutrition from decreased oral intake. -Acute anemia, no active source of bleeding identified, likely hemodilution or from chemotherapy improving -Severe hypomagnesemia decreased oral intake, improving -Acute renal failure likely prerenal, could be acute tubular necrosis component. -Hypokalemia, improving -Coumadin toxicity was no evidence of bleeding, received vitamin K. -Pancytopenia from chemotherapy. 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 Status post chemoradiation treatment. PLAN: Continue IV fluids, monitor daily labs, electrolyte imbalances supplemented, discussion had regarding PEG tube placement versus increasing oral intake with patient patient does not want a PEG tube placed and seems willing to increase oral intake and utilize supplements available. Hemoglobin stable today continue low-dose beta danyelle, all the cardiac medications held as well as his anticoagulation. We'll consider utilization of a novel anticoagulant. Plan of care discussed with the patient the bedside we will monitor closely. DIVISION SUPERINTENDENT statement: Patient was seen and examined by nurse practitioner Digna Hwang and all elements of the case discussed with attending Dr. Zee
[2017-08-26] MEDS: WARFARIN 5 MG TAB PO SCH (17:15)
--- NOTE | 2017-08-26 18:34 | PN ---
PROGRESS NOTE DATE OF SERVICE: 08/26/17. ATTENDING NOTE: This patient was seen and examined by me. I discussed with my nurse practitioner, Ms. Hwang. This patient admitted with Coumadin toxicity for paroxysmal atrial fibrillation, also pancytopenic getting chemotherapy for cancer of the tongue. Appetite is getting somewhat better. Girlfriend at the bedside. PHYSICAL EXAMINATION: Temperature 97.8, pulse 67, respiratory rate 16, blood pressure 122/60, lungs are clear. ABDOMEN: Soft. Psych AO x3. INVESTIGATIONS: White count 2.5, hemoglobin 7.6, platelets 111, potassium 3.6, creatinine 1.088. ASSESSMENT: 1. Acute renal failure likely prerenal. Could be acute tubular necrosis, improved. 2. Coumadin toxicity status post vitamin K. 3. Pancytopenia on chemotherapy. 4. Squamous cell carcinoma of the base of the tongue status post chemo and radiation treatment. 5. Hypotension from weight loss and antihypertensive improving. PLAN: Patient is on filgrastim to which she is responding. Heart rate is controlled. We will start the patient back on Coumadin 5 mg starting tonight. Important to remember that with the vitamin K it may take a while to come back and it may shoot up afterwards. Care was discussed with the patient and his girlfriend/fiancee at the bedside. Also spoke with Dr. Nguyen from Cardiology. Start Coumadin tonight. MMODL / IJN: [id number] /
[2017-08-26] MEDS: METOPROLOL TARTRATE 25 MG TAB PO SCH (21:21)
[2017-08-26] MEDS: ATORVASTATIN 40 MG TAB PO SCH (21:21)
[2017-08-27] MEDS: LACTATED RINGERS 1,000 ML IV SCH ×2 (03:57→07:43)
[2017-08-27 07:20] LABS: Anisocytosis Moderate; Basophils % (A) 0 %; CH 30.2; CHCM 33.2; Eosinophils % (A) 1 %; HDW 3.54; Immature Gran Flag Moderate; Luc % (Auto) 4; Lymphocytes # (A) 0.1 k/uL (1.0-4.8); Lymphocytes % (A) 4 %; MCH 30.5 pg (25.0-35.0); MCHC 33.4 g/dL (31.0-37.0); MCV 91.2 fL (80.0-100.0); Macrocytosis Slight; Mean Platelet Volume 7.5; Monocytes # (A) 0.3 k/uL (0-1.0); Monocytes % (A) 10 %; Neutrophils # (A) 2.3 k/uL (1.3-7.7); Neutrophils % (A) 83 %; Poikilocytosis Slight; RDW 20.1 % (11.5-15.5); WBC 2.8 k/uL (3.8-10.6); WBC (Perox) 2.91
[2017-08-27 07:29] LABS: INR 1.3 (<1.2); Prothrombin Time 13.2 sec (9.0-12.0)
[2017-08-27] MEDS: FILGRASTIM-SNDZ 480 MCG/0.8 ML SYRINGE SQ SCH (08:14)
[2017-08-27] MEDS: MAGNESIUM SULFATE-D5W PMX 1 GM in DEXTROSE/WATER 1 100ML.BAG IVPB SCH ×3 (08:14→11:02)
[2017-08-27] MEDS: METOPROLOL TARTRATE 25 MG TAB PO SCH ×2 (08:15→20:09)
[2017-08-27 08:23] LABS: Manual Review Performed
[2017-08-27] MEDS: ONDANSETRON 4 MG/2 ML VIAL IVP PRN (09:05)
[2017-08-27 11:10] VITALS: BMI 22.8
--- NOTE | 2017-08-27 14:12 | P.PN ---
Subjective Progress Note Date: 08/27/17 Principal diagnosis: head trauma, coagulopathy Mr. Moore is seen today in follow-up. Patient is sitting at the bedside with breakfast tray of liquids and soft foods in front of him. He states having an appetite, denies fevers, nausea, certain foods and liquids do cause him some pain with swallowing, denies gaging or choking, vomiting, cough, shortness of breath, changes in bowel or bladder habits. No swelling in the legs. Patient is independently ambulatory. He denies any other pain Objective - Vital Signs Vital signs: Vital Signs Temp 98.5 F 08/27/17 07:00 Pulse 67 08/27/17 07:00 Resp 18 08/27/17 07:00 BP 152/74 08/27/17 07:00 Pulse Ox 95 08/27/17 07:49 Intake & Output 08/26/17 08/27/17 08/27/17 18:59 06:59 18:59 Intake Total 760 50 Output Total 450 Balance 310 50 Weight 76.5 kg 76.5 kg Intake: IV 100 Calcium Gluconate 2,000 100 mg In Sodium Chloride 0.9 % 100 ml @ 100 mls/hr IVPB ONCE ONE Rx#: [id number] Intake, IV Titration 100 Amount Magnesium Sulfate-D5w Pmx 100 1 gm In Dextrose/Water 1 100ml.bag @ 100 mls/hr IVPB Q1H EV Rx#: [id number] Oral 560 50 Output: Urine 450 Other: Voiding Method Toilet Toilet Toilet Urinal Urinal Urinal - Constitutional General appearance: Present: average body habitus, cooperative, no acute distress - EENT EENT Comment(s): 5cm hematoma left occipital area, does not appear larger then yesterday Eyes: Present: anicteric sclerae, EOMI, PERRLA, normal appearance ENT: Present: hearing grossly normal, normal oropharynx - Respiratory Respiratory: bilateral: CTA - Cardiovascular Heart sounds: normal: S1, S2 - Peripheral edema leg Peripheral Edema: bilateral: None - Gastrointestinal General gastrointestinal: Present: normal bowel sounds, soft - Integumentary Integumentary Comment(s): dryness, radiation skin changes on neck noted Integumentary: Present: normal - Neurologic Neurologic: Present: CNII-XII intact - Musculoskeletal Musculoskeletal: Present: strength equal bilaterally - Psychiatric Psychiatric: Present: A&O x's 3, appropriate affect, intact judgment & insight - Labs CBC & Chem 7: 08/27/17 06:57 08/26/17 16:12 Labs: Abnormal Lab Results - Last 24 Hours (Table) 08/27/17 08/27/17 08/27/17 Range/Units 06:57 06:57 06:57 WBC 2.8 L (3.8-10.6) k/uL RBC 2.30 L (4.30-5.90) m/uL Hgb 7.0 L* (13.0-17.5) gm/dL Hct 21.0 L (39.0-53.0) % RDW 20.1 H (11.5-15.5) % Plt Count 104 L (150-450) k/uL Lymphocytes # 0.1 L (1.0-4.8) k/uL PT 13.2 H (9.0-12.0) sec INR 1.3 H (<1.2) Magnesium 1.1 L (1.6-2.3) mg/dL - Imaging and Cardiology CT Scan - head: report reviewed Assessment and Plan (1) Head and neck malignancy Narrative/Plan: Pt has completed concurrent chemo/radiation within the previous 2 weeks. He will be due for treatment follow up imaging in the next 2-3 weeks, f/u with Dr. Jones already scheduled, appt date and time in DC plan. Status: Acute (2) Antineoplastic chemotherapy induced pancytopenia Narrative/Plan: CBC stable today. WBC improved, ANC normal at 2,300, GCSF will be discontinued after this morning' s dose. Hemoglobin 7, no transfusion. Platelet count 104,000, adequate. Status: Acute (3) Head injury Narrative/Plan: Serial CT without contrast did not show intracranial bleed, the hematoma collection is subcutaneously, patient's neurological and mental status today is normal, he is more alert and states feeling well. Status: Acute (4) Warfarin-induced coagulopathy Narrative/Plan: Patient's INR was supratherapeutic on admission, this is been reversed. His Coumadin was resumed last night. Patient will be in the office in 4 days, CBC, electrolytes and INR will be rechecked. Did discuss with the patient the impact of oral intake on INR. Discussed with patient and girlfriend the importance of seeking immediate medical attention if patient exhibits any acute changes in mental status or neurological deficits. Status: Acute (5) Protein calorie malnutrition Narrative/Plan: Patient states having an appetite today, he is tolerating liquids and very soft foods. Discussed the importance of oral intake to prevent dehydration. Patient agrees, he has a menu already planned for home. He believes that he will continue to be able to tolerate oral intake because today swallowing is just a little easier than yesterday Status: Chronic (6) Electrolyte abnormality Narrative/Plan: Patient is receiving magnesium supplementation this a.m. Labs will be rechecked in the office in 4 days. Status: Acute Plan: Case discussed with internal medicine REHAB/PRE VOCATIONAL COUNSELOR. Patient is okay from a hematology/ oncology standpoint to be discharged once he has been cleared by Internal Medicine and other consults.
[2017-08-27] MEDS: HYDROcodone/APAP 5-325MG 1 EACH TAB PO PRN (14:26)
--- NOTE | 2017-08-27 15:36 | P.PN ---
Progress Note - Text Progress Note Date: 08/27/17 DATE OF SERVICE: 08/27/2017 PRESENTING COMPLAINT: Passing out HISTORY OF PRESENT ILLNESS: 66-year-old patient history of cancer of the base of the tongue and adjoining lymph nodes status post chemoradiation therapy. Has had overall poor appetite and losing weight. Has found he is becoming lightheaded and has been falling. Fell on his back his head and the top came in for evaluation computed tomography scan negative and INR was greater than 10. Not bleeding anywhere however received vitamin K. INTERVAL HISTORY: 08/27/2017: Patient lying in bed appears tired. Patient has not walked much today. Has not eaten much for breakfast barely 20%. About 4 bites of hot cereal and his protein shake.no dizziness or lightheadedness, had an episode of nausea after he ate but no vomiting.IV fluids discontinued, to see how patient will do without that support and how he'll do eating and drinking. 08/26/2017: Lying in bed patient appears tired, electrolytes out of balance magnesium potassium and calcium all supplemented appropriately. Discussion regarding patient's appetite and versus feeding tube was had at the bedside today. Patient does not want a feeding tube however unsure of how to go about getting in quality nutrition. Nutrition services consulted. Advised patient to have small meals frequently throughout the day, high-quality protein shakes, high- quality protein bars, in addition to any other foods that he would like to eat. Patient verbalized understanding. Ambulating to and from the bathroom independently. Last BM 08/26/2017, ate about 50% of his breakfast. 08/25/2017: Lying in bed appears tired. Magnesium potassium and calcium all low and supplemented appropriately. Discussion had with patient regarding placement of a feeding tube. Questions were answered patient understood reason for placement and is agreeable. IV fluids continue. Dietitian consulted. Ambulatory to and from the bathroom with assistance. Appetite overall poor not eating much. No bleeding, daily monitoring of INR. REVIEW OF SYSTEMS: Done for constitutional ,cardiovascular, GI, pulmonary with relevant findings as above. CURRENT MEDICATIONS Lopressor 12.5 mg by mouth daily, filgrastim 480 g subcu daily, Coumadin 5 mg PHYSICAL EXAM VITAL SIGNS: Temperature 97.8, pulse 67, respirations 16, blood pressure 120/60, oxygen saturation 96% on room air. GENERAL APPEARANCE: Lying in bed, tired appearing. EYES: Pupils equal. Conjunctiva normal. NECK: JVD not raised. Mass not palpable. RESPIRATORY: Respiratory effort normal. Lungs clear to auscultation. CARDIOVASCULAR: First and second sounds normal. No edema. ABDOMEN: Soft. Liver and spleen not palpable. No tenderness. No mass palpable. PSYCHIATRY: Alert and oriented x3. Mood and affect normal. INVESTIGATIONS: White blood cell count 2.8, hemoglobin 7.0, INR 1.3, magnesium 1.1, ASSESSMENT: -Hypotension from weight loss and antihypertensives, improving -Moderate protein calorie malnutrition from decreased oral intake. -Acute anemia, no active source of bleeding identified, likely hemodilution or from chemotherapy improving -Severe hypomagnesemia decreased oral intake, improving -Acute renal failure likely prerenal, could be acute tubular necrosis component. -Hypokalemia, improving -Coumadin toxicity was no evidence of bleeding, received vitamin K. -Pancytopenia from chemotherapy. 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 Status post chemoradiation treatment. PLAN: monitor daily labs, electrolyte imbalances supplemented as warranted Hemoglobin stable today continue low-dose beta danyelle, Coumadin initiated yesterday 5 mg yesterday today and tomorrow we'll evaluate and adjust accordingly. We'll see how patient does without IV fluid support and his eating pattern. Plan of care discussed with the patient the bedside we will monitor closely. SUPERVISOR EPOXY FABRICATION statement: Patient was seen and examined by nurse practitioner Digna Hwang and all elements of the case discussed with attending Dr. Zee
[2017-08-27 15:38] VITALS: RESP 20
--- NOTE | 2017-08-27 18:08 | PN ---
PROGRESS NOTE DATE OF SURGERY: 08/27/2017. ATTENDING NOTE: This patient seen and examined by me. I discussed with my nurse practitioner, Ms. Hwang. The patient was admitted with Coumadin toxicity and hypertension, decreased oral intake. Appetite is getting better. Renal function improving. Did walk out in the hallway. Coumadin was started yesterday. PHYSICAL EXAMINATION: Temperature 98.5, pulse 67, blood pressure 15/74. Lungs are clear. Cardiovascular first and second sounds normal. INVESTIGATIONS: White count 2.8, hemoglobin 7, platelets 104. INR 1.3. ASSESSMENT: Hypertension weight loss and antihypertensives. Coumadin toxicity. Given vitamin K. PLAN: Overall doing much better. Encouraged to ambulate. Coumadin started. If patient continues to do well hopefully can be discharged tomorrow. Questions were answered. MMODL / IJN: [id number] /
[2017-08-27] MEDS: WARFARIN 5 MG TAB PO SCH (18:22)
[2017-08-27] MEDS: ATORVASTATIN 40 MG TAB PO SCH (20:09)
[2017-08-28 07:48] LABS: Anisocytosis Moderate; Basophils % (A) 0 %; CH 30.6; Eosinophils % (A) 1 %; HCT 22.1 % (39.0-53.0); HDW 3.41; HGB 7.3 gm/dL (13.0-17.5); Luc # (Auto) 0.17; Luc % (Auto) 4; Lymphocytes # (A) 0.2 k/uL (1.0-4.8); Lymphocytes % (A) 4 %; MCH 30.7 pg (25.0-35.0); MCV 92.9 fL (80.0-100.0); Macrocytosis Slight; Mean Platelet Volume 7.4; Monocytes # (A) 0.3 k/uL (0-1.0); Monocytes % (A) 8 %; Neutrophils # (A) 3.5 k/uL (1.3-7.7); Neutrophils % (A) 84 %; Poikilocytosis Slight; RBC 2.38 m/uL (4.30-5.90); RDW 20.4 % (11.5-15.5); WBC 4.2 k/uL (3.8-10.6); WBC (Perox) 4.12
[2017-08-28 08:05] LABS: INR 1.7 (<1.2); Prothrombin Time 16.7 sec (9.0-12.0)
[2017-08-28 08:12] LABS: Anion Gap 6 mmol/L; Blood Urea Nitrogen 9 mg/dL (9-20); Carbon Dioxide 31 mmol/L (22-30); Chloride 100 mmol/L (98-107); Glucose 86 mg/dL (74-99); Magnesium 1.1 mg/dL (1.6-2.3); Non-African American GFR(MDRD) >60 (>60 ml/min/1.73 sqM); Potassium 3.8 mmol/L (3.5-5.1); Sodium 137 mmol/L (137-145)
[2017-08-28 08:23] VITALS: BP 154/66; PULSE 73; TEMP 98.7
[2017-08-28] MEDS: METOPROLOL TARTRATE 25 MG TAB PO SCH (08:41)
[2017-08-28] MEDS: MAGNESIUM SULFATE-D5W PMX 1 GM in DEXTROSE/WATER 1 100ML.BAG IVPB SCH ×3 (10:37→12:55)
--- NOTE | 2017-08-28 16:50 | P.DS ---
Providers Date of admission: 08/24/17 13:43 Expected date of discharge: 08/28/17 Attending physician: Atif Zee Consults: 08/24/17 19:28 Consult Physician Routine Consulting Provider: Benito Jones Consult Reason/Comments: tongue ca Do you want consulting provider notified?: Yes Primary care physician: [facility] Course: FINAL DIAGNOSES: -Hypotension from weight loss and antihypertensives, -Moderate protein calorie malnutrition from decreased oral intake. -Acute anemia, no active source of bleeding identified, likely hemodilution or from chemotherapy -Severe hypomagnesemia decreased oral intake -Acute renal failure likely prerenal, could be acute tubular necrosis component. -Hypokalemia -Coumadin toxicity was no evidence of bleeding, received vitamin K. -Pancytopenia from chemotherapy. 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 Status post chemoradiation treatment. HOSPTIAL COURSE: 66-year-old male with a history of cancer of the base of the tongue adjoining lymph nodes status post chemoradiation therapy, has had an overall poor appetite and was losing weight. He became lightheaded at home and began falling. He fell on the back of his head and the top of his head and came in for evaluation, computed tomography scan was negative for any acute process and INR was greater than 10. Was not bleeding from anywhere however received vitamin K to reverse INR. Initial testing revealed severe electrolyte imbalance Was admitted for the same. Home medications reordered, IV fluids initiated ,electrolyte supplemented, oncologist consulted. Oncology evaluated the patient and patient has a follow-up appointment regarding head and neck malignancy scheduled, patient has pancytopenia that's induced by chemotherapy and overall labs have improved. Patient found to have very poor appetite at home no desire to eat and not drinking very much and this in turn had an impact on his INR, nutrition services consulted due to persistent educating the patient on how to eat and what and when to eat. Cardiology was consulted to evaluate for a fall and possible syncope. Based on patient's presentation IV fluids and a blood transfusion were the offending source. Cardiac medications were stopped on admission and a low-dose beta danyelle was added. Patient is ambulatory in the room and hallway without feeling dizzy or lightheaded, tolerating his diet eating about 30-40% of his meals, electrolytes is stabilized has had no bleeding episodes from anywhere, Coumadin restarted per cardiology. Overall condition has stabilized patient is appropriate for discharge. PHYSICAL EXAM: CARDIOVASCULAR: First and second sounds noted no edema RESPIRATORY: Effort normal, lung sounds diminished bilaterally to the bases GI: Abdomen soft nontender liver and spleen not palpable positive bowel sounds 4 quadrants. PSYCHIATRY: Alert and oriented 3 mood and affect normal Patient was seen and examined by nurse practitioner Digna Hwang in all elements of the case discussed with attending Dr. Zee DISPOSITION: Home to the care of his daughter Patient Condition at Discharge: Stable Plan - Discharge Summary New Discharge Prescriptions: Continue Atorvastatin [Lipitor] 40 mg PO HS Changed Metoprolol Tartrate [Lopressor] 25 mg PO TID #1 Warfarin [Coumadin] 2.5 mg PO HS #1 Discontinued Furosemide [Lasix] 20 mg PO QAM hydrALAZINE HCL 50 mg PO TID amLODIPine BESYLATE [Norvasc] 5 mg PO QAM Warfarin [Coumadin] 5 mg PO MOWEFRSA Lisinopril [Prinivil] 20 mg PO BID Discharge Medication List Atorvastatin [Lipitor] 40 mg PO HS 05/19/17 [History] Metoprolol Tartrate [Lopressor] 25 mg PO TID #1 08/28/17 [Rx] Warfarin [Coumadin] 2.5 mg PO HS #1 08/28/17 [Rx] Follow up Appointment(s)/Referral(s): Benito Jones MD [STAFF PHYSICIAN] - 08/31/17 10:00 am Eugene Willard DO [Primary Care Provider] - 09/01/17 8:00 am Ambulatory/Diagnostic Orders: Prothrombin Time INR [LAB.AMB] Time Frame: 3 Days, Location: Determined By Patient Patient Instructions/Handouts: Vitamin K in Foods (DC), Anemia (DC), Fall Prevention (DC) Activity/Diet/Wound Care/Special Instructions: Diet as tolerated Activity as tolerated Discharge Disposition: HOME SELF-CARE
--- NOTE | 2017-08-28 18:45 | DS ---
DISCHARGE SUMMARY DATE OF SERVICE: 08/28/2017 ATTENDING NOTE: This patient was seen and examined by me. I discussed the case with my nurse practitioner, Ms. Hwang. Patient is doing much better; up and about in the hallway, dizziness nearly resolved. Blood pressure has come up. Coumadin has been resumed. Will adjust the dose of metoprolol to 25 three times a day. Patient will be sent home with a small amount of Coumadin. Care was discussed with the patient and [place]. Questions were answered. Discharge planning more than 35 minutes. PHYSICAL EXAMINATION: Slightly decreased breath sounds. CARDIOVASCULAR: First and second sounds normal. MMODL / IJN: [id number] /
--- NOTE | 2017-09-21 05:21 | PN ---
PROGRESS NOTE DATE OF SERVICE: 08/27/2017 CORRECTION: The patient's vital signs are noted in the electronic record and the blood pressure typed one in my note correct is in the electronic records. MMODL / IJN: [id number] /
== END 2017-08-28 15:00 | disposition home or self-care (01) | DRG 809 ==
LOC: EC 11:37 → 6SEL 13:43 → 5ONC 08-26 20:21
PROVIDERS: ADMIT Hospitalist; ATTEND Hospitalist
PROC: 30233N1 Transfusion of Nonautologous Red Blood Cells into Peripheral Vein, Percutaneous Approach (ICD-10-PCS; principal; 2017-08-25)
DX: D61.810 Antineoplastic chemotherapy induced pancytopenia (principal); N17.9 Acute kidney failure, unspecified; E44.0 Moderate protein-calorie malnutrition; C77.0 Secondary and unspecified malignant neoplasm of lymph nodes of head, face and neck; I11.0 Hypertensive heart disease with heart failure; I50.9 Heart failure, unspecified; S09.90XA Unspecified injury of head, initial encounter; C01 Malignant neoplasm of base of tongue; E86.0 Dehydration; I48.0 Paroxysmal atrial fibrillation; E83.42 Hypomagnesemia; E78.5 Hyperlipidemia, unspecified; T46.5X5A Adverse effect of other antihypertensive drugs, initial encounter; E87.6 Hypokalemia; I95.1 Orthostatic hypotension; R74.8 Abnormal levels of other serum enzymes; T45.515A Adverse effect of anticoagulants, initial encounter; T45.1X5A Adverse effect of antineoplastic and immunosuppressive drugs, initial encounter; Z79.01 Long term (current) use of anticoagulants; Z79.899 Other long term (current) drug therapy; Z87.891 Personal history of nicotine dependence; W19.XXXA Unspecified fall, initial encounter; Y92.009 Unspecified place in unspecified non-institutional (private) residence as the place of occurrence of the external cause
CPT/HCPCS: 36415; 70450; 71020; 72125; 80048; 80053; 81001; 82272; 82310; 82550; 82553; 83735; 84132; 84484; 85025; 85027; 85610; 85730; 86850; 86900; 86901; 86920; 87324; 93005; 93306; 94760; 96361; 96365; 99285

== ENCOUNTER → 2018-01-02 | Outpatient (CLI) | payer MEDICAID ==
--- NOTE | 2018-01-04 11:15 | PE ---
EXAMINATION TYPE: PET CT fusion skull to thigh DATE OF EXAM: 01/02/2018 COMPARISON: CT neck 06/09/2017 Prior PET/CT: 09/26/2017 HISTORY: Head and neck cancer mouth and tongue TECHNIQUE: Following the intravenous administration of 13.9 mCi of F-18 FDG, whole body images are p erformed from the skull base to the midthigh. Images are reviewed on the computer in the coronal, ax ial, and sagittal planes. Reconstructed rotating images are created on independent workstation and r eviewed on the computer. A localization and attenuation correction CT is performed in conjunction w ith the PET scan. DLP: 73.84, 370.66 mGycm SCAN: Subsequent Blood glucose: 105 mg/dL Average Mediastinum SUV: 1.29 Average Liver SUV: 1.85 FINDINGS: NECK: There is increased radiotracer accumulation within the base of the tongue posterior to the ape x of the jaw with an SUV value of 6.76 compatible with the patient's cancer. This appears midline. No suspicious lymphadenopathy with abnormal uptake is evident. Note is made of some increased signal at the right acromioclavicular junction which can be compatible some degenerative change. Dedicated images over the neck are obtained. Focal radiotracer accumulation within the base of the to ngue is again evident currently measuring SUV of 5.9 on these images. Suspicious adenopathy is not id entified. Uptake within the lung apices less apparent but remains present. THORAX: There is some mild increased density along the superior lateral right pleural margin with an SUV value of 3.4. Image 72. Inflammatory change and neoplasm could be considered. Some mild increased radiotracer measuring 2.28 within the anterior left apex, image 72. The 0.8 cm nodular density just posterior to the major fissure in the superior segment left lower lob e may be inflammatory with an SUV value of 0.91. ABDOMEN: No abnormal uptake PELVIS: No abnormal uptake OSSEOUS STRUCTURES: No abnormal uptake LOCALIZATION CT: There is increased density medial to the left submandibular gland. This does not abn ormal uptake on PET scan. This was present previously. The infrarenal abdominal aortic aneurysm which terminates above the bifurcation measures 4.5 cm AP by 4.5 cm transverse. Some ectasia of the aorta begins just inferior to the renal arteries. COMPARISON: Soft tissue increased density along the medial left submandibular region is stable. The h ypodensity at the base of the tongue corresponds to the increased radiotracer accumulation on the PET scan can be compatible with the patient's reported tongue cancer. IMPRESSION: 1. Abnormal uptake at the base the tongue posterior to the apex of the jaw compatible with the patien t's reported tongue cancer. 2. There is some increased density along the anterior superior left lung apex and anterior lateral ri ght lung apex with mildly elevated SUV values. Neoplasm should be considered. Inflammatory changes co nsidered less likely. These areas are new from the comparison of 09/26/2017 could be metastatic diseas e. 3. Abdominal aortic aneurysm measuring 4.5 cm.
== END | disposition home or self-care (01) ==
LOC: RADPETMAIN 09:14
PROVIDERS: ATTEND Radiology Radiation Oncology
DX: C01 Malignant neoplasm of base of tongue (principal); J98.4 Other disorders of lung; I71.4 Abdominal aortic aneurysm, without rupture; Z92.3 Personal history of irradiation; Z92.21 Personal history of antineoplastic chemotherapy
CPT/HCPCS: 78815; A9552

== ENCOUNTER 2018-01-08 09:03 | Day surgery (SDC) | payer MEDICAID, MEDICARE ==
[2018-01-08 10:03] LABS: Platelet Count 140 k/uL (150-450)
[2018-01-08 10:07] VITALS: RESP 16; TEMP 98.1
[2018-01-08] MEDS ORDERED: ALPRAZolam 0.25 MG TAB PO STA (10:08)
[2018-01-08 10:23] LABS: INR 1.2 (<1.2); Prothrombin Time 11.6 sec (9.0-12.0)
[2018-01-08 11:52] VITALS: BP 147/66; PULSE 59
--- NOTE | 2018-01-08 12:48 | US ---
EXAMINATION TYPE: US biopsy thorax or neck, US fine needle aspiration DATE OF EXAM: 01/08/2018 HISTORY: Right neck mass. FINDINGS: Maximal barrier technique was utilized. The skin overlying a suitable path to the patient' s mass was localized with ultrasound and the overlying skin prepped and draped. Ultrasound was utili zed with sterile technique. Lidocaine was used for local anesthesia. 3 passes were made with an 25-g auge needle and aspirated specimen submitted to cytology. A skin tania was made with a scalpel. An 18 -gauge needle was advanced under direct ultrasound guidance and core specimen obtained of the mass. Specimen submitted in formalin to Pathology. Following the procedure, hemostasis achieved and the pa tient is discharged in stable condition without complication. IMPRESSION:STATUS POST ULTRASOUND GUIDED CORE BIOPSY OF right neck MASS, PATHOLOGY IS PENDING. THIS PROCEDURE IS PERFORMED BY THE UNDERSIGNED.
== END 2018-01-08 11:30 | disposition home or self-care (01) ==
LOC: RADPROMAIN 09:03
PROVIDERS: ATTEND Otolaryngology
DX: M79.89 Other specified soft tissue disorders (principal); C02.9 Malignant neoplasm of tongue, unspecified
CPT/HCPCS: 10022; 20206; 21550; 36415; 76942; 85049; 85610; 88173; 88305

== ENCOUNTER → 2018-04-20 | Outpatient (CLI) | payer MEDICAID ==
--- NOTE | 2018-04-20 15:01 | CT ---
EXAMINATION TYPE: CT ChestAbdPelvis w con DATE OF EXAM: 04/20/2018 COMPARISON: CT abdomen and pelvis June 09, 2011. PET/CT of January 02, 2018 and older studies HISTORY: Oropharynx cancer, observe for mets. CT DLP: 871.4 mGycm. Automated Exposure Control for Dose Reduction was Utilized. CONTRAST: CT scan of the thorax, abdomen and pelvis is performed with oral and with IV Contrast, patient inject ed with 100 mL of Isovue M300. FINDINGS: LUNGS: There is persistent mild to moderate anterior biapical pleural/parenchymal scarring. There is slight enlargement in superior anterior left lower lobe nodule measuring 14 x 8 mm on axial image 36. This nodule has been present back to PET CT June 06, 2017 however. No new nodules or masses are cl early seen. There is no pleural effusion or pneumothorax seen. The tracheobronchial tree is patent. MEDIASTINUM: There are no greater than 1 cm hilar or mediastinal lymph nodes. No cardiomegaly or pe ricardial effusion is seen. Coronary artery calcification is redemonstrated which is noted marker for coronary artery disease. Main pulmonary artery measures 3.3 cm in diameter axial image 27, CT findi ngs suggesting underlying pulmonary hypertension. Adjacent ascending aorta measures 3.3 cm in diamete r. OTHER: No additional significant abnormality is seen. LIVER/GB: No significant abnormality is appreciated. PANCREAS: Some mild fat replaced atrophy of the pancreatic head and body is present.. SPLEEN: No significant abnormality is seen. ADRENALS: No significant abnormality is seen. KIDNEYS: There is symmetric cortical medullary uptake and excretion from both kidneys without evidenc e of hydronephrosis seen bilaterally. Some early excretion centrally in both kidneys is seen. There a re few subcentimeter low dense lesions scattered throughout the left kidney that are too small to fur ther characterize but presumed benign. BOWEL: Oral contrast reaches level of rectum. There is no suspicious small or large bowel dilatation. There is mild to moderate wall thickening involving the distal left:, Sigmoid colon and rectum suspi cious for colitis especially distally. GENITAL ORGANS: Some central zone calcifications are seen in normal size prostate gland. Adjacent pel joan phleboliths are seen. LYMPH NODES: No greater than 1cm abdominal or pelvic lymph nodes are appreciated. OSSEOUS STRUCTURES: Prominent multilevel spurring in the thoracolumbar spine is present. Facet arthro [place] lower lumbar levels is seen. Some narrowing of bilateral sacroiliac iliac joints with spurring is seen. OTHER: There is infrarenal abdominal aortic aneurysm measuring 4.3 x 4.2 cm axial image 82 not signif icant change in size from most recent PET/CT. Mild to moderate mixed plaque is redemonstrated. IMPRESSION: The superior left lower lobe nodule is felt slightly larger versus prior PET CTs. Furthe r investigation with repeat PET/CT or short-term follow-up CT in 3 months time should be considered a s developing malignancy cannot be excluded. Otherwise no new mass or adenopathy is seen to suggest ne w or metastatic malignancy. Note is made of suspected new distal mild to moderate colitis, differenti al includes infectious inflammatory and/or ischemic etiologies. Correlate clinically. Continued imagi ng monitoring of 4.3 cm abdominal aortic aneurysm is advised.
--- NOTE | 2018-04-20 15:20 | CT ---
EXAMINATION TYPE: CT soft tissue neck w con DATE OF EXAM: 04/20/2018 2:09 PM COMPARISON: Prior CT dated 08/24/2017, nuclear medicine PET/CT 01/02/2018 HISTORY: Oropharynx cancer, observe for mets. CT DLP: 343.8 mGycm Automated exposure control for dose reduction was used. CONTRAST: CT scan of the neck is performed following with IV Contrast, patient injected with 100 mL of Isovue M 300. Axial images are obtained, coronal and sagittal reformatted images are reviewed. FINDINGS: Airway: No gross abnormality seen. Parotid/submandibular glands: No gross abnormality seen. Carotid/Vascular Structures: Stable Osseous Structures: Stable Other: Cervical adenopathy is noted on the right as on previous exam, short axis measurement approxim ately 14 mm. Diffuse abnormal increased soft tissue is present in the submandibular location on the l eft extending about the external carotid artery, some associated adenopathy is again seen. Adenopathy also along the jugular vein on the left as on prior. Increased density along the subcutaneous fat ov er the anterior neck and chin likely is inflammatory. IMPRESSION: Findings compatible with patient's history of head and neck carcinoma. There is not a si gnificant interval change compared to patient's prior exams
== END | disposition home or self-care (01) ==
LOC: RADCTMAIN 11:47
PROVIDERS: ATTEND Internal Medicine Hematology & Oncology
DX: C10.9 Malignant neoplasm of oropharynx, unspecified (principal)
CPT/HCPCS: 82565; 84520; 70491; 71260; 74177; 36415; Q9967

== ENCOUNTER → 2018-08-12 | Outpatient (CLI) | payer MEDICARE, MEDICAID ==
--- NOTE | 2018-08-12 12:48 | CT ---
EXAMINATION TYPE: CT neck chest w con DATE OF EXAM: 08/12/2018 COMPARISON: 04/20/2018 HISTORY: Oropharynx cancer follow up. CT DLP: 992 mGycm CONTRAST: CT scan of the neck is performed with IV Contrast, patient injected with 80 mL of Isovue 300. Contrast enhanced CT of the neck was performed from the skull base through the lung apices. AIRWAY: The supraglottic, glottic, and subglottic portions of the airway appear patent and free of mass. SALIVARY GLANDS: Again noted is diffuse abnormal soft tissue about the left submandibular region enca sing the external carotid artery and portions of the left internal carotid artery. There is adjacent adenopathy present also unchanged with short axis measurement of 11 mm. THYROID GLAND: No nodules or masses seen. LYMPH NODES: Left perisubmandibular lymph node that measures 11 mm in short axis. Right internal jugu lar chain adenopathy measures 1.2 cm versus 1.4 cm previously. OTHER: Vascular structures are patent. No significant degenerative change of the cervical spine. N o abscess seen. IMPRESSION: 1. Stable soft tissue left submandibular gland region as discussed above with bilateral adenopathy. EXAMINATION TYPE: CT neck chest w con DATE OF EXAM: 08/12/2018 COMPARISON: 04/20/2018 HISTORY: Oropharynx cancer follow up. CT DLP: 992 mGycm Automated exposure control for dose reduction was used. CONTRAST: CT scan of the chest is performed with IV Contrast, patient injected with 80 mL of Isovue 300. FINDINGS: LUNGS: Left lower lobe pulmonary nodule is again noted and measures 1.2 cm versus 1.4 cm. No addition al pulmonary nodules identified. No evidence for airspace consolidation MEDIASTINUM: There are no greater than 1 cm hilar or mediastinal lymph nodes. No pericardial effusi on is seen. Thoracic aorta is of normal caliber. The heart is not enlarged. UPPER ABDOMEN: No significant abnormality appreciated. OTHER: Diffuse idiopathic skeletal hyperostosis. IMPRESSION: 1. Stable left lower lobe pulmonary nodule. Metastatic disease is not excluded.
== END | disposition home or self-care (01) ==
LOC: RADCTMAIN 11:06
PROVIDERS: ATTEND Internal Medicine Hematology & Oncology
DX: C10.9 Malignant neoplasm of oropharynx, unspecified (principal); R59.0 Localized enlarged lymph nodes; R91.8 Other nonspecific abnormal finding of lung field
CPT/HCPCS: 82565; 84520; 70491; 71260; 36415; Q9967

== ENCOUNTER 2018-09-07 08:54 | Day surgery (SDC) | payer MEDICAID, MEDICARE ==
[2018-09-07 09:27] VITALS: RESP 16; TEMP 97.8
[2018-09-07 09:39] LABS: Mean Platelet Volume 7.9; Platelet Count 144 k/uL (150-450)
[2018-09-07 09:43] LABS: INR 1.2 (<1.2); Prothrombin Time 11.6 sec (9.0-12.0)
[2018-09-07 10:19] VITALS: BP 160/88; PULSE 91
--- NOTE | 2018-09-07 11:50 | US ---
ULTRASOUND GUIDED FNA AND CORE BIOPSY bilateral neck lymphadenopathy: CLINICAL HISTORY: Bilateral neck lymphadenopathy FINDINGS: The procedure was explained to the patient. The risks, complications, benefits and alternatives were discussed and any questions were answered. Informed consent was obtained. Patient was placed supin e on the ultrasound table and prepped and draped in the usual sterile fashion. Utilizing a 25 gauge needle, five passes were made into the requested right lymph node. The lesion was to confirm for the core biopsy needle to penetrate and therefore a core biopsy could not be obtained. 3 FNA samples were obtained from the requested left neck lymph node and a single 18-gauge core sample s were obtained. Patient was stable throughout the procedure. Pathology is pending. All elements of maximal barrier and sterile technique were utilized. IMPRESSION: 1. Successful ultrasound guided FNA and core biopsy bilateral neck masses.
== END 2018-09-07 10:30 | disposition home or self-care (01) ==
LOC: RADPROMAIN 08:54
PROVIDERS: ATTEND Otolaryngology
DX: R59.0 Localized enlarged lymph nodes (principal); J37.0 Chronic laryngitis; K11.7 Disturbances of salivary secretion; I50.9 Heart failure, unspecified; Z85.810 Personal history of malignant neoplasm of tongue; Z92.21 Personal history of antineoplastic chemotherapy; Z92.3 Personal history of irradiation; Z87.891 Personal history of nicotine dependence; M10.9 Gout, unspecified; E78.00 Pure hypercholesterolemia, unspecified; Z79.2 Long term (current) use of antibiotics; Z79.01 Long term (current) use of anticoagulants; Z79.52 Long term (current) use of systemic steroids; Z79.899 Other long term (current) drug therapy
CPT/HCPCS: 10022; 36415; 38505; 76942; 85049; 85610; 88173; 88305

== ENCOUNTER → 2018-12-16 | Outpatient (CLI) | payer MEDICARE ==
[2018-12-16 11:50] LABS: HCT 42.2 % (39.0-53.0); HGB 13.7 gm/dL (13.0-17.5); MCH 30.4 pg (25.0-35.0); MCHC 32.5 g/dL (31.0-37.0); MCV 93.4 fL (80.0-100.0); Platelet Count 148 k/uL (150-450); RBC 4.52 m/uL (4.30-5.90); RDW 13.8 % (11.5-15.5); WBC 6.2 k/uL (3.8-10.6)
[2018-12-16 12:03] LABS: Potassium 5.4 mmol/L (3.5-5.1)
== END | disposition home or self-care (01) ==
LOC: LABPAT 10:21
PROVIDERS: ATTEND Internal Medicine Cardiovascular Disease
DX: Z01.812 Encounter for preprocedural laboratory examination (principal); I48.1 Persistent atrial fibrillation
CPT/HCPCS: 36415; 80051; 82565; 82947; 84520; 85027

== ENCOUNTER → 2018-12-20 | Outpatient (CLI) | payer MEDICARE ==
--- NOTE | 2018-12-20 10:55 | CT ---
EXAMINATION TYPE: CT neck chest w con DATE OF EXAM: 12/20/2018 COMPARISON: 08/12/2018 and 04/20/2018 HISTORY: 68-year-old male follow-up Carcinoma of Oropharynx TECHNIQUE: Contiguous axial scanning of the neck and chest performed with IV Contrast, patient inject ed with 80 mL of Isovue 300. Coronal/sagittal reconstructions performed. CT DLP: 1147 mGycm Automated exposure control for dose reduction was used. FINDINGS: Neck: Visualized intracranial structures, paranasal sinuses, and mastoid air cells appear clear. Nasopharynx is clear. No suspicious mass within the oropharynx though there is circumferential thickening of the mucosal sp mayela likely posttreatment effect. Impression onto the posterior hypopharynx from a prominent anterior endplate spurring at C3-C4. The glottic and subglottic structures as well as the tracheal column appear clear. Chest reported separately. Thyroid gland and submandibular glands are atrophic. -Stable 1.1 cm left submandibular lymph node dating back to 04/20/2018. -Stable thickened soft tissue partially encasing the left carotid space and extending to efface the f at plane with the anterior margin of the adjacent, atrophic left sternocleidomastoid. Soft tissue thi ckening measures 2.7 x 1.4 cm, and remains unchanged. -Stable right station 3 lymph node measuring 1.1 cm. -Stable left lower level 3 lymph nodes measuring up to 8 mm. 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 Degenerative changes at the C1 dens articulation. CHEST: Heart normal size without pericardial effusion. Coronary vessel calcifications are present. 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 Large caliber to the main right and left pulmonary arteries measuring up to 2.8 cm on the right. No thoracic lymphadenopathy by CT size criteria. Evaluation of the lungs shows mild diffuse bronchial wall thickening. No consolidation or pleural eff usion. There is redemonstrated subpleural pulmonary nodule lateral left lower lobe axial image 31. This is m easured at 13 x 8 mm versus 12 x 8 mm on 08/12/2018 and 14 x 8 mm on 04/20/2018. This is overall grossl y stable. No new pulmonary nodules or masses. Visualized upper abdomen shows no gross abnormality. Adrenal glands are clear. Bones: Bridging anterior endplate spondylosis compatible with DISH. COMBINED IMPRESSION: NECK: 1. Stable thickened soft tissue measuring 2.7 x 1.4 cm near the left submandibular region partially e ncasing the left carotid space and effacing the adjacent fat plane with the sternocleidomastoid. This appearance is unchanged compared back to at least 04/20/2018. 2. A few stable borderline sized cervical lymph nodes measuring up to 1.1 cm particularly left subman dibular space, right station 3, and lower left station 3 dating back to at least 04/20/2018. No new ce rvical lymphadenopathy. 3. Stable circumferential thickening along the mucosal space of the oropharynx and hypopharynx likely posttreatment change. There is further posterior impression on to the hypopharynx from a large endpl ate spur at C3-C4. CHEST: 1. Overall stable 1.3 cm left lower lobe pulmonary nodule. This measured 1.2 cm on 08/12/2018 and 1.4 cm on 04/20/2018. Again, overall stable. Continued follow-up as indicated. 2. 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 Pulmonary arterial hypertension.
== END ==
LOC: RADCTMAIN 07:18
PROVIDERS: ATTEND Internal Medicine Hematology & Oncology
DX: C10.9 Malignant neoplasm of oropharynx, unspecified (principal); I71.2 Thoracic aortic aneurysm, without rupture; R91.1 Solitary pulmonary nodule
CPT/HCPCS: 82565; 84520; 70491; 71260; 36415; Q9967

== ENCOUNTER → 2019-03-04 | Outpatient (CLI) | payer MEDICARE ==
[2019-03-04 17:24] LABS: Anion Gap 8.3 mmol/L (4.00-12.00); Calcium 9.4 mg/dL (8.7-10.3); Carbon Dioxide 23.7 mmol/L (21.6-31.8); Potassium 4.8 mmol/L (3.5-5.5)
== END ==
LOC: LABWHC1 08:39
PROVIDERS: ATTEND Internal Medicine Cardiovascular Disease
DX: I10 Essential (primary) hypertension (principal)
CPT/HCPCS: 36415; 80048

== ENCOUNTER → 2019-04-19 | Outpatient (CLI) | payer MEDICARE ==
--- NOTE | 2019-04-19 12:34 | CT ---
EXAMINATION TYPE: CT neck chest without con DATE OF EXAM: 04/19/2019 COMPARISON: CT neck and chest December 20, 2018 and older studies. PET/CT January 02, 2018 and older studies. HISTORY: Oral pharyngeal cancer completed chemotherapy and radiation in August 2017. CT DLP: 1363.4 mGycm. Automated Exposure Control for Dose Reduction was Utilized. TECHNIQUE: CT scan of the neck and thorax are performed without IV contrast. FINDINGS: NECK: Evaluation neck is suboptimal due to lack of enteric contrast which limits evaluation for mucos al lesions and neck adenopathy. There is redemonstration of mild to moderate symmetric atrophy of bilateral submandibular glands with stable 1.2 x 1.1cm round hyperdense lesion along superior aspect axial image 56 felt to reflect aman evelia lymph node. Just posterior to this there is stable elongated soft tissue measuring 2.8 x 1.4 cm f elt to reflect treated adenopathy. This is causing medial deviation of carotid and jugular vessels si milar to prior. Prominent but subcentimeter lymph nodes inferior to this in the left neck are unchang ed from prior. Stable asymmetric mild to moderate fat replaced atrophy of left parotid gland. Stable enlarged right level 3 lymph node measuring 1.4 x 1.1 cm axial image 49 at level of hyoid bone . No new greater than 1 cm adenopathy. Airway remains patent. Atrophic thyroid redemonstrated. Large bridging osteophytes in the cervical spine are redemonstrated. Moderate to advanced disc space narrowing C5-C6 and C6-C7 level is again seen. CHEST: LUNGS: Persistent nodularity left lower lobe abutting the fissure measures 1.4 x 0.5 cm current study image 45 significantly changed from most recent study. There is nodularity is not enlarged from orig inal PET/CT June 06, 2017. No new nodules or masses. No pleural effusion or pneumothorax. MEDIASTINUM: Lack of IV contrast is noted to limit evaluation for mediastinal and especially hilar ad enopathy. There are no definitive greater than 1 cm hilar or mediastinal lymph nodes. No cardiomega ly or pericardial effusion is seen. Moderate coronary artery calcification is present which is noted marked underlying coronary artery disease OTHER: There is beginning visualization of known aneurysm abdominal aorta on last axial images just b elow renal arteries. Large bridging osteophytes in the thoracic spine are redemonstrated. IMPRESSION: No suspicious new mass or adenopathy identified to suggest active neoplastic recurrence. Overall stable findings.
== END | disposition home or self-care (01) ==
LOC: RADCTMAIN 08:12
PROVIDERS: ATTEND Internal Medicine Hematology & Oncology
DX: C10.9 Malignant neoplasm of oropharynx, unspecified (principal)
CPT/HCPCS: 36415; 70490; 71250; 82565; 84520

== ENCOUNTER → 2019-08-24 | Outpatient (CLI) | payer MEDICARE ==
--- NOTE | 2019-08-24 08:55 | CT ---
EXAMINATION TYPE: CT neck chest without con DATE OF EXAM: 08/24/2019 COMPARISON: CT neck and chest April 19, 2019 and older studies. HISTORY: Malignant neoplasm of Oropharynx CA recently diagnosed summer 2016 CT DLP: 1326.0 mGycm. Automated Exposure Control for Dose Reduction was Utilized. TECHNIQUE: CT scan of the neck and thorax are performed without IV contrast. FINDINGS: Evaluation of back suboptimal due to lack of enteric contrast which limits evaluation for m ucosal lesions and neck adenopathy. NECK: Airway remains grossly patent. There is persistent thickening of the vallecula greater on the l eft seen on axial image 55 not significantly changed from last 2 studies. Persistent bilateral submandibular gland atrophy with oval hyperdense left-sided focus measuring 1.3 x 1.1 cm axial image 56 not significantly changed from last 2 studies. Suspect treated lymph node. It shows posterior and inferior to this there is persistent irregular slightly hyperdense soft tissue m ass measuring approximately 3.3 x 1.5 cm axial image 58 not significantly changed in size or appearan ce from last 2 CT studies. This correlates with area of prior confluent lobulated adenopathy on older exams. There is persistent abnormal right level 3 lymph node node measuring roughly 1.5 x 1.2 cm axi al image 50 at level of hyoid bone versus the most recent CT. There are prominent but subcentimeter l eft neck lymph nodes near carotid and jugular vessels for reference axial images 38 and 40 not signif icant changed from most recent CT Persistent atrophied thyroid gland. Persistent large anterior spurring in the cervical spine with add itional disc space narrowing lower cervical levels redemonstrated. CHEST: LUNGS: There is 1.1 x 0.6 cm left midlung nodule axial image 38 stable from most recent CT. This nodu larity that is not enlarged from original PET/CT June 06, 2017. No new nodules or masses are seen. N o pleural effusion or pneumothorax. MEDIASTINUM: Lack of IV contrast is noted to limit evaluation for mediastinal and especially hilar ad enopathy. There are no definitive greater than 1 cm hilar or mediastinal lymph nodes. No cardiomega ly or pericardial effusion is seen. Coronary artery calcification is redemonstrated which is noted ma rker for underlying coronary artery disease. OTHER: Aneurysmal change of the abdominal aorta is partially imaged on last axial images. Large bridg ing osteophytes in the thoracic spine are redemonstrated. Duodenal diverticulum it is thought present axial image 75. IMPRESSION: Overall stable findings from most recent CT. No new or enlarging mass or adenopathy ident ified suggest active neoplastic recurrence.
== END ==
LOC: RADCTMAIN 06:58
PROVIDERS: ATTEND Internal Medicine Hematology & Oncology
DX: C10.9 Malignant neoplasm of oropharynx, unspecified (principal)
CPT/HCPCS: 70490; 71250

== ENCOUNTER → 2019-12-28 | Outpatient (CLI) | payer MEDICARE | END | disposition home or self-care (01) | LOC: RADCTMAIN 08:33 | PROVIDERS: ATTEND Internal Medicine Hematology & Oncology | DX: C10.9 Malignant neoplasm of oropharynx, unspecified (principal) | CPT/HCPCS: 82565; 84520 ==

== ENCOUNTER → 2020-01-04 | Outpatient (CLI) | payer MEDICARE ==
--- NOTE | 2020-01-04 11:57 | CT ---
EXAMINATION TYPE: CT neck chest w con DATE OF EXAM: 01/04/2020 7:59 AM COMPARISON: Prior neck and chest CT 12/20/2018, 08/24/2019 HISTORY: Oropharynx CA CT DLP: 1280.1 mGycm Automated exposure control for dose reduction was used. CONTRAST: CT scan of the neck and chest is performed following with IV Contrast, patient injected with 80 mL of Isovue 300. Axial images are obtained, coronal and sagittal reformatted images are reviewed. FINDINGS: Airway: No gross abnormality seen. The nodule along the pleural surface in the left lung shows a benjy lar appearance, is stable, no pleural or pericardial effusion. Parotid/submandibular glands: There is stability of the enhancing soft tissue nodule adjacent to the submandibular gland on the left is now measures 13 mm in AP dimension as on previous. Carotid/Vascular Structures: Stable Osseous Structures: The abnormal soft tissue in the left neck which partially encases the external ca rotid artery branches shows a similar appearance. The right-sided node is also stable at the level of the hyoid. Additional lower left-sided nodes are stable. Suspect underlying diffuse idiopathic skele buck hyperostosis, degenerative change also noted in the cervical spine. Other: Degenerative disc changes, facet arthropathy again noted within the cervical spine. Coronary a rtery calcifications are present. No evident adrenal mass. Low dense focus within the medial segment of the left lobe of liver is thought to be stable. Probable sebaceous cyst posterior base of the neck towards the midline measures 2.2 cm in greatest dimension. IMPRESSION: Stable exam.
== END | disposition home or self-care (01) ==
LOC: RADCTMAIN 05:48
PROVIDERS: ATTEND Internal Medicine Hematology & Oncology
DX: C10.9 Malignant neoplasm of oropharynx, unspecified (principal)
CPT/HCPCS: 82565; 84520; 70491; 71260; 36415; Q9967

== ENCOUNTER → 2020-07-04 | Outpatient (CLI) | payer MEDICARE ==
--- NOTE | 2020-07-04 13:06 | CT ---
EXAMINATION TYPE: CT neck chest w con DATE OF EXAM: 07/04/2020 10:37 AM COMPARISON: Prior exam 01/04/2020 HISTORY: Follow up oropharyngeal cancer CT DLP: 1181 mGycm Automated exposure control for dose reduction was used. CONTRAST: CT scan of the neck and chest is performed following with IV Contrast, patient injected with 80 mL of Isovue 300. Axial images are obtained, coronal and sagittal reformatted images are reviewed. FINDINGS: The left lower lobe lung nodule measures 18 mm x 10 mm x 9 mm and previous exam measured ap proximately 16 x 9 x 9 mm. There is no pleural or pericardial effusion. Airway: No gross abnormality seen. Parotid/submandibular glands: No gross abnormality seen. Carotid/Vascular Structures: The abnormal soft tissue adjacent to the carotid bifurcation extending a long the external carotid artery branches laterally shows a similar appearance and size compared to p rior exam. In the submandibular location there is a node as on prior exam which measured 13.5 mm on p rior exam and now measures approximately the same and shows central low attenuation. Osseous Structures: Stable degenerative disc changes in the cervical spine, hypertrophic changes may be indicative of diffuse idiopathic skeletal hyperostosis as on prior Other: Right sided no the level of the carotid bifurcation shows a similar measurement approximately 13 mm in short axis low-attenuation focus within the liver is stable. Possible sebaceous cyst posteri or neck also unchanged. IMPRESSION: Findings are similar to prior exam.
== END | disposition home or self-care (01) ==
LOC: RADCTMAIN 09:14
PROVIDERS: ATTEND Internal Medicine Hematology & Oncology
DX: C10.9 Malignant neoplasm of oropharynx, unspecified (principal)
CPT/HCPCS: 82565; 84520; 70491; 71260; 36415; Q9967